=== PATIENT | female | born 1945 | race Caucasian/White ===

== ENCOUNTER 2018-05-08 00:08 | Inpatient (IN) | payer MEDICARE ==
[2018-05-08] MEDS ORDERED: Albuterol/Ipratropium NEB.SOL* Albuterol 2.5 MG/Ipratropium 0.5 MG 3 ML INH ONE (00:19)
[2018-05-08] MEDS ORDERED: Albuterol 2.5 MG/3 ML NEB.SOL* (0.083%) INH ONE (00:19)
[2018-05-08] MEDS ORDERED: NS 0.9% 1000 ML* 1,000 ML IV ONE ×2 (00:25→02:07)
[2018-05-08] MEDS ORDERED: Piperacillin/Tazobac ADVAN(*) 3.375 GM in NS 0.9% 100 ML* 100 ML IVPB ONE (00:25)
[2018-05-08] MEDS ORDERED: methylPREDNISolone 125 MG* 2 ML VIAL IV ONE (00:26)
[2018-05-08] MEDS ORDERED: Clindamycin 600 MG IVPREMIX(* 600 MG/50 ML SDV IV ONE (00:53)
[2018-05-08 01:44] LABS: INR 4.81 (0.77-1.02)
[2018-05-08 01:49] LABS: Urine Appearance Turbid; Urine Blood 2+ (Negative); Urine Color Amber; Urine Ketones Negative (Negative); Urine Protein 1+(30 mg/dL) (Negative); Urine Red Blood Cell 3+(>10/hpf) (Absent); Urine Specific Gravity 1.015 (1.010-1.030); Urine Urobilinogen Negative (Negative); Urine White Blood Cell 2+(11-20/hpf) (Absent)
[2018-05-08 01:52] LABS: Hematocrit 31 % (35-47); Hemoglobin 10.6 g/dl (12.0-16.0); Mean Corpuscular HGB Conc 35 g/dl (31-36); Mean Corpuscular Hemoglobin 31 pg (27-31); Mean Corpuscular Volume 90 fL (80-97); Mean Platelet Volume 7.4 fL (7.4-10.4); Platelet Count 183 10^3/ul (150-450); Red Blood Count 3.41 10^6/ul (4.00-5.40); Red Cell Distribution Width 15 % (10.5-15); White Blood Count 10.7 10^3/ul (3.5-10.8)
[2018-05-08 01:53] LABS: EGFR Non-African American 23.3 (>60)
[2018-05-08] MEDS ORDERED: NS 0.9% 1000 ML* 1,000 ML IV SCH ×2 (02:00→03:00)
[2018-05-08] MEDS ORDERED: Phytonadione IV (Adult)* 10 MG/ML 1 ML AMP IV ONE (02:08)
--- NOTE | 2018-05-08 02:14 | ADMNOTE ---
Subjective Date of Service: 05/08/18 Interval History: code status dni/dnr signed by pt and she is aao times three witnessed by two other er nursing staff this is admission h/ to icu total critical care time spent 90 min hpi this is a 72 yr old wf with hx of copd ( not on home oxygen ) pvd s/p b/l fempep and had aaa repair currently on coumadin due to concurrent r carotid dvt presented to local er with unknown days of sob/couging with greenish sputum not feeling well. she was found in acute hypoxia respiratory failure and hypotension and tachycardic on admission from er signout. initial abg 7.4//235 /18 on high oxygen repeat abg after oxygen reduction was 7.33///16 ct of chest with no contrast showed multi lobar pna. initial wbc and lactic acid is neg pt was on bipap for her respiratory problem but was found to have hypotension despite ivf echo ordered for am. spoke with icu dr production bow maker will start low dose of pressor and call family to her for treatment goal discussion. d/w pt reg her overall prognosis she wants dni/dnr and is aao times three when this decision is made one dose of vit k 2.5 ivp given due to inr is close to 5 phx/pshx copd on no home oxgyen pvd f/u with vascular from [facility] s/p b/l fempep s/p abd aortic aneurysm repair r carotid dvt on coumadin still smokes social 0.5 ppd occ etoh walks with a walker at times at home lives alone fhx dm/htn Review of Systems - Measurements Intake and Output: Intake and Output Last 24 Hours 05/05/18 05/06/18 05/07/18 05/08/18 06:59 06:59 06:59 06:59 Intake Total 1050 Output Total 300 Balance 750 Weight 160 lb Intake: IV Fluids 1050 Output: Residual 300 Harding 16 Fr Temperature 300 Probe - Review of Systems General Comments: pertinent as per hpi Objective Active Medications: Albuterol/Ipratropium (Duoneb (Albuterol 2.5 Mg/Ipratropium 0.5 Mg)) 1 neb INH RT.[id number] AWAKE PRN PRN Reason: sob/wheexing Sodium Chloride (Ns 0.9% 1000 Ml*) 1,000 mls @ 75 mls/hr IV PER RATE KACY Levofloxacin/Dextrose (Levaquin 500 Mg Ivpremix(*)) 500 mg in 100 mls @ 100 mls /hr IVPB Q24H KACY Sodium Chloride (Ns 0.9% 1000 Ml*) 1,000 mls @ 75 mls/hr IV PER RATE KACY Sodium Chloride (Ns 0.9% 1000 Ml*) 1,000 mls @ 1,000 mls/hr IV ONCE ONE Stop: 05/08/18 03:06 Last Admin: 05/08/18 02:11 Dose: 1,000 mls/hr Fluconazole/Sodium Chloride (Diflucan 100 Mg Ivpremix(*)) 100 mg in 50 mls @ 100 mls/hr IVPB Q24H [facility] Vital Signs - 8 hr 05/08/18 05/08/18 05/08/18 00:22 00:35 01:04 Temperature 95 F 97.3 F Pulse Rate 102 100 Respiratory 30 24 Rate Blood Pressure 75/44 (mmHg) O2 Sat by Pulse 92 98 Oximetry 05/08/18 01:06 Temperature Pulse Rate 100 Respiratory 24 Rate Blood Pressure (mmHg) O2 Sat by Pulse 98 Oximetry Oxygen Devices in Use Now: BiPAP Appearance: in mod respiratory distress Eyes: No Scleral Icterus, PERRLA Ears/Nose/Mouth/Throat: NL Teeth, Lips, Gums, Clear Oropharnyx, Mucous Membranes Moist Neck: NL Appearance and Movements; NL JVP, Trachea Midline, No Thyroid Enlargement, Masses Respiratory: Symmetrical Chest Expansion and Respiratory Effort, - - diffuse ronchi Cardiovascular: NL Sounds; No Murmurs; No JVD, RRR, - - tachycardic Abdominal: NL Sounds; No Tenderness; No Distention Extremities: - - + 1 pedal edema able to raise ue and le against gravity Skin: No Rash or Ulcers Neurological: Alert and Oriented x 3, NL Muscle Strength and Tone - sensory b/l ue and le equal , - Result Diagrams: 05/08/18 05:42 05/08/18 05:42 Microbiology and Other Data: Microbiology 05/08/18 01:20 Influenza Types A,B Antigen - Final Nasopharyngeal Specimen received for Influenza A/B Molecular testing EKG Data: ekg sinus tach no acute st t change Assess/Plan/Problems-Billing Assessment: this is a 72 yr old wf with hx of copd not on home oxygen sig pvd presented to er with acute respiratory failure complicated with hypoxia and hypotension initial ct showed multilobar pna - Patient Problems (1) Acute and chronic respiratory failure Current Visit: Yes Status: Acute Code(s): J96.20 - ACUTE AND CHR RESP FAILURE, UNSP W HYPOXIA OR HYPERCAPNIA SNOMED Code(s): 38175862 Comment: bipap support pul to eval in am ck sputum cx resp tx along with bipap as tolerated (2) Hypoxia Current Visit: Yes Status: Acute Code(s): R09.02 - HYPOXEMIA SNOMED Code(s ): 022237826 Comment: plan as above (3) Multilobar lung infiltrate Current Visit: Yes Status: Acute Code(s): R91.8 - OTHER NONSPECIFIC ABNORMAL FINDING OF LUNG FIELD SNOMED Code(s): 8080115000164 Comment: poor prognosis with her bad lung condition and still smokes pt is aao times three and agrees to dni/dnr molst signed (4) Hypotension Current Visit: Yes Status: Acute Comment: ivf low dose pressor ck random cortisal level hydrocortisone instead of solumderol (5) Severe sepsis with acute organ dysfunction Current Visit: Yes Status: Acute Code(s): A41.9 - SEPSIS, UNSPECIFIED ORGANISM; R65.20 - SEVERE SEPSIS WITHOUT SEPTIC SHOCK SNOMED Code(s): 01142202 Comment: ivf with pressors abx hydrocortisone iv q 8 bipap (6) Acute renal failure (ARF) Current Visit: Yes Status: Acute Comment: this could be atn related to hypotension secondary to infection ivf harding placed moniter input and outpt mnter lytes abd sono ordered for am (7) PVD (peripheral vascular disease) Current Visit: Yes Status: Acute Code(s): I73.9 - PERIPHERAL VASCULAR DISEASE, UNSPECIFIED SNOMED Code(s): 882922371 Comment: pt has been on coumadin for this problem ---> inr is supratheraputic close to 5 this could be much worse due to concurrent abx use iv vit k given hold coumadin (8) Supratherapeutic INR Current Visit: Yes Status: Acute Code(s): R79.1 - ABNORMAL COAGULATION PROFILE SNOMED Code(s): 682539552 Comment: hold coumadin iv vit k given h/h stable not bleeding no ffp given
--- NOTE | 2018-05-08 02:28 | ED ---
Shortness of Breath - HPI Summary HPI Summary: Pt is a 72 y/o female brought in by ambulance, transferred from [facility] for admission with a CC of SOB. She also c/o fever and low BP. Pt is in respiratory distress. Pt has a Hx of HTN. - History of Current Complaint Chief Complaint: EDGeneral Time Seen by Provider: 05/08/18 00:11 Hx Obtained From: Patient, EMS Onset/Duration: Sudden Onset - Allergy/Home Medications Allergies/Adverse Reactions: Allergies Allergy/AdvReac Type Severity Reaction Status Date / Time Penicillins Allergy Hives Verified 05/08/18 00:28 PMH/Surg Hx/FS Hx/Imm Hx Cardiovascular History: Reports: Hx Hypertension Respiratory History: Reports: Hx Chronic Obstructive Pulmonary Disease (COPD) Denies: Hx Asthma Infectious Disease History: Unable to Obtain/Confirm Infectious Disease History: Denies: Traveled Outside the [place] in Last 30 Days - Family History Known Family History: Negative: Blood Disorder - Social History Alcohol Use: None Substance Use Type: Reports: Marijuana Smoking Status (MU): Light Every Day Tobacco Smoker Review of Systems Positive: Fever Cardiovascular: Other - Positive: low BP All Other Systems Reviewed And Are Negative: Yes Physical Exam - Summary Physical Exam Summary: VITAL SIGNS: Reviewed. GENERAL: Patient is a well-developed and nourished FEMALE who is in acute respiratory distress, lethargic HEAD AND FACE: No signs of trauma. No ecchymosis, hematomas or skull depressions. No sinus tenderness. EYES: PERRLA, EOMI x 2, No injected conjunctiva, no nystagmus. EARS: Hearing grossly intact. Ear canals and tympanic membranes are within normal limits. MOUTH: Oropharynx within normal limits. NECK: Supple, trachea is midline, no adenopathy, no JVD, no carotid bruit, no c- spine tenderness, neck with full ROM. CHEST: Symmetric, no tenderness at palpation LUNGS: Respiratory distress, diffuse rhonchi over right lung. CVS: tachycardic, regular rhythm, S1 and S2 present, no murmurs or gallops appreciated. ABDOMEN: Soft, non-tender. No signs of distention. No rebound no guarding, and no masses palpated. Bowel sounds are normal. EXTREMITIES: FROM in all major joints, no edema, no cyanosis or clubbing. NEURO: Alert and oriented x 3. No acute neurological deficits. Speech is normal and follows commands. SKIN: Dry and warm Triage Information Reviewed: Yes Vital Signs On Initial Exam: Initial Vitals Temp Pulse Resp BP Pulse Ox 95 F 102 30 75/44 92 05/08/18 00:22 05/08/18 00:22 05/08/18 00:22 05/08/18 00:22 05/08/18 00:22 Vital Signs Reviewed: Yes Diagnostics - Vital Signs Vital Signs Temp Pulse Resp BP Pulse Ox 05/08/18 01:06 100 24 98 05/08/18 01:04 100 24 98 05/08/18 00:35 97.3 F 05/08/18 00:22 95 F 102 30 75/44 92 - Laboratory Lab Results: Lab Results 05/08/18 05/08/18 05/08/18 Range/Units 00:55 01:20 01:20 WBC 10.7 (3.5-10.8) 10^3/ul RBC 3.41 L (4.00-5.40) 10^6/ul Hgb 10.6 L (12.0-16.0) g/dl Hct 31 L (35-47) % MCV 90 (80-97) fL MCH 31 (27-31) pg MCHC 35 (31-36) g/dl RDW 15 (10.5-15) % Plt Count 183 (150-450) 10^3/ul MPV 7.4 (7.4-10.4) fL Neut % (Auto) Not Reportable Lymph % (Auto) Not Reportable [place] % (Auto) Not Reportable Eos % (Auto) Not Reportable Baso % (Auto) Not Reportable Absolute Neuts (auto) Not Reportable Absolute Lymphs (auto) Not Reportable Absolute Monos (auto) Not Reportable Absolute Eos (auto) Not Reportable Absolute Basos (auto) Not Reportable Absolute Nucleated RBC Not Reportable Immature Gran % 7 (0-9) % Neutrophils % 83 (38-83) % Band Neutrophils % 7 (0-8) % Lymphocytes % 10 L (25-47) % Nucleated RBC % Not Reportable Normal RBC Morphology Normal (Normal) INR (Anticoag Therapy) (0.77-1.02) APTT (26.0-36.3) seconds ABG pH (7.35-7.45) ABG pCO2 (35-45) mmHg ABG pO2 (80-100) mmHg ABG HCO3 (19-31) mmol/L ABG O2 Saturation (95-98) % ABG Base Excess (-2.0-2.0) Sodium 127 L (135-145) mmol/L Potassium 3.6 (3.5-5.0) mmol/L Chloride 101 (101-111) mmol/L Carbon Dioxide 16 L (22-32) mmol/L Anion Gap 10 (2-11) mmol/L BUN 41 H (6-24) mg/dL Creatinine 2.08 H (0.51-0.95) mg/dL Est GFR ( Amer) 28.2 (>60) Est GFR (Non-Af Amer) 23.3 (>60) BUN/Creatinine Ratio 19.7 (8-20) Glucose 70 (70-100) mg/dL Lactic Acid (0.5-2.0) mmol/L Calcium 7.4 L (8.6-10.3) mg/dL Total Bilirubin 0.40 (0.2-1.0) mg/dL AST 24 (13-39) U/L ALT 18 (7-52) U/L Alkaline Phosphatase 56 (34-104) U/L Troponin I 0.08 H* (<0.04) ng/mL B-Natriuretic Peptide (<=100) pg/mL Total Protein 5.4 L (6.4-8.9) g/dL Albumin 2.5 L (3.2-5.2) g/dL Globulin 2.9 (2-4) g/dL Albumin/Globulin Ratio 0.9 L (1-3) Urine Color Chloe Urine Appearance Turbid Urine pH 5.0 (5-9) Ur Specific [place] 1.015 (1.010-1.030) Urine Protein 1+(30 mg/dl) A (Negative) Urine Ketones Negative (Negative) Urine Blood 2+ A (Negative) Urine Nitrate Negative (Negative) Urine Bilirubin Negative (Negative) Urine Urobilinogen Negative (Negative) Ur Leukocyte Esterase Negative (Negative) Urine WBC (Auto) 2+(11-20/hpf) A (Absent) Urine RBC (Auto) 3+(>10/hpf) A (Absent) Urine Bacteria Absent (Absent) Hyaline Casts Present A (Absent) Granular Casts Present A (Absent) Urine Yeast Present A (Absent) Urine Glucose Negative (Negative) Influenza A (Rapid) (Negative) Influenza B (Rapid) (Negative) 05/08/18 05/08/18 05/08/18 Range/Units 01:20 01:20 01:20 WBC (3.5-10.8) 10^3/ul RBC (4.00-5.40) 10^6/ul Hgb (12.0-16.0) g/dl Hct (35-47) % MCV (80-97) fL MCH (27-31) pg MCHC (31-36) g/dl RDW (10.5-15) % Plt Count (150-450) 10^3/ul MPV (7.4-10.4) fL Neut % (Auto) Lymph % (Auto) [place] % (Auto) Eos % (Auto) Baso % (Auto) Absolute Neuts (auto) Absolute Lymphs (auto) Absolute Monos (auto) Absolute Eos (auto) Absolute Basos (auto) Absolute Nucleated RBC Immature Gran % (0-9) % Neutrophils % (38-83) % Band Neutrophils % (0-8) % Lymphocytes % (25-47) % Nucleated RBC % Normal RBC Morphology (Normal) INR (Anticoag Therapy) 4.81 H (0.77-1.02) APTT 63.6 H (26.0-36.3) seconds ABG pH (7.35-7.45) ABG pCO2 (35-45) mmHg ABG pO2 (80-100) mmHg ABG HCO3 (19-31) mmol/L ABG O2 Saturation (95-98) % ABG Base Excess (-2.0-2.0) Sodium (135-145) mmol/L Potassium (3.5-5.0) mmol/L Chloride (101-111) mmol/L Carbon Dioxide (22-32) mmol/L Anion Gap (2-11) mmol/L BUN (6-24) mg/dL Creatinine (0.51-0.95) mg/dL Est GFR ( Amer) (>60) Est GFR (Non-Af Amer) (>60) BUN/Creatinine Ratio (8-20) Glucose (70-100) mg/dL Lactic Acid 1.4 (0.5-2.0) mmol/L Calcium (8.6-10.3) mg/dL Total Bilirubin (0.2-1.0) mg/dL AST (13-39) U/L ALT (7-52) U/L Alkaline Phosphatase (34-104) U/L Troponin I (<0.04) ng/mL B-Natriuretic Peptide 195 H (<=100) pg/mL Total Protein (6.4-8.9) g/dL Albumin (3.2-5.2) g/dL Globulin (2-4) g/dL Albumin/Globulin Ratio (1-3) Urine Color Urine Appearance Urine pH (5-9) Ur Specific [place] (1.010-1.030) Urine Protein (Negative) Urine Ketones (Negative) Urine Blood (Negative) Urine Nitrate (Negative) Urine Bilirubin (Negative) Urine Urobilinogen (Negative) Ur Leukocyte Esterase (Negative) Urine WBC (Auto) (Absent) Urine RBC (Auto) (Absent) Urine Bacteria (Absent) Hyaline Casts (Absent) Granular Casts (Absent) Urine Yeast (Absent) Urine Glucose (Negative) Influenza A (Rapid) (Negative) Influenza B (Rapid) (Negative) 05/08/18 05/08/18 Range/Units 01:30 01:46 WBC (3.5-10.8) 10^3/ul RBC (4.00-5.40) 10^6/ul Hgb (12.0-16.0) g/dl Hct (35-47) % MCV (80-97) fL MCH (27-31) pg MCHC (31-36) g/dl RDW (10.5-15) % Plt Count (150-450) 10^3/ul MPV (7.4-10.4) fL Neut % (Auto) Lymph % (Auto) [place] % (Auto) Eos % (Auto) Baso % (Auto) Absolute Neuts (auto) Absolute Lymphs (auto) Absolute Monos (auto) Absolute Eos (auto) Absolute Basos (auto) Absolute Nucleated RBC Immature Gran % (0-9) % Neutrophils % (38-83) % Band Neutrophils % (0-8) % Lymphocytes % (25-47) % Nucleated RBC % Normal RBC Morphology (Normal) INR (Anticoag Therapy) (0.77-1.02) APTT (26.0-36.3) seconds ABG pH 7.40 (7.35-7.45) ABG pCO2 23 L (35-45) mmHg ABG pO2 235 H (80-100) mmHg ABG HCO3 17.9 L (19-31) mmol/L ABG O2 Saturation 99.2 H (95-98) % ABG Base Excess -9.0 L (-2.0-2.0) Sodium (135-145) mmol/L Potassium (3.5-5.0) mmol/L Chloride (101-111) mmol/L Carbon Dioxide (22-32) mmol/L Anion Gap (2-11) mmol/L BUN (6-24) mg/dL Creatinine (0.51-0.95) mg/dL Est GFR ( Amer) (>60) Est GFR (Non-Af Amer) (>60) BUN/Creatinine Ratio (8-20) Glucose (70-100) mg/dL Lactic Acid (0.5-2.0) mmol/L Calcium (8.6-10.3) mg/dL Total Bilirubin (0.2-1.0) mg/dL AST (13-39) U/L ALT (7-52) U/L Alkaline Phosphatase (34-104) U/L Troponin I (<0.04) ng/mL B-Natriuretic Peptide (<=100) pg/mL Total Protein (6.4-8.9) g/dL Albumin (3.2-5.2) g/dL Globulin (2-4) g/dL Albumin/Globulin Ratio (1-3) Urine Color Urine Appearance Urine pH (5-9) Ur Specific [place] (1.010-1.030) Urine Protein (Negative) Urine Ketones (Negative) Urine Blood (Negative) Urine Nitrate (Negative) Urine Bilirubin (Negative) Urine Urobilinogen (Negative) Ur Leukocyte Esterase (Negative) Urine WBC (Auto) (Absent) Urine RBC (Auto) (Absent) Urine Bacteria (Absent) Hyaline Casts (Absent) Granular Casts (Absent) Urine Yeast (Absent) Urine Glucose (Negative) Influenza A (Rapid) Negative (Negative) Influenza B (Rapid) Negative (Negative) Result Diagrams: 05/08/18 01:20 05/08/18 01:20 Lab Statement: Any lab studies that have been ordered have been reviewed, and results considered in the medical decision making process. - Radiology CXR Radiology Interpretation Completed By: ED Physician - Diffuse right lung infiltrate. Post obstructive PNA cannot be ruled out. Pending official report. - CT Chest CT Interpretation Completed By: Radiologist - 1. There is mediastinal lymphadenopathy. 2. There is consolidation involving most of the right upper lobe with some minimal air bronchograms present and there is additional bilateral lower lobe dependent consolidation as well as bilateral lung patchy opacity in the perihilar regions, all suspicious for bilateral pneumonitis versus less likely pulmonary edema. Mass lesion in the right hilum cannot be completely excluded but limited evaluation without IV contrast. ED physician has reviewed this imaging report. - EKG 01:02 Cardiac Rate: NL - 97 bpm EKG Rhythm: Sinus Rhythm Summary of EKG Findings: Normal axis. Normal interval. No ischemic changes. Course/Dx - Course Course Of Treatment: Pt is a 72 y/o female brought in by ambulance, transferred from [facility] for admission with a CC of SOB. Her PE showed that the pt was in respiratory distress, lethargic, tachycardic and diffuse rhonchi over the right lung. Her CXR showed diffuse right lung infiltrate. Post obstructive PNA cannot be ruled out. Her troponin was remarkable at 0.08. Her Chest CT showed. 1. There is mediastinal lymphadenopathy. 2. There is consolidation involving most of the right upper lobe with some. minimal air bronchograms present and there is additional bilateral lower lobe. dependent consolidation as well as bilateral lung patchy opacity in the. perihilar regions, all suspicious for bilateral pneumonitis versus less likely. pulmonary edema. Mass lesion in the right hilum cannot be completely excluded. but limited evaluation without IV contrast. She will be admitted to [facility]. Dx: PNA. - Diagnoses Provider Diagnoses: PNA (pneumonia) - Physician Notifications Discussed Care of Patient With: Taylor Erazo Time Discussed With Above Provider: 00:50 Instructed by Provider To: Admit As Inpatient - [facility] was paged at 00:45. At 00:50 she stated that she will not accept the Pt for admission until she has a chest CT. A chest CT was obtained and pt is ready for admission. Discharge - Sign-Out/Discharge Documenting (check all that apply): Patient Departure - Admit - Discharge Plan Condition: Fair Disposition: ADMITTED TO [facility] - Attestation Statements Document Initiated by Scribe: Yes Documenting Scribe: Brock Valentine Provider For Whom Scribe is Documenting (Include Credential): Alfonso Rueda MD Scribe Attestation: I, Brock Valentine, scribed for Alfonso Rueda MD on 05/08/18 at 0359.
[2018-05-08] MEDS ORDERED: Fluconazole 100 MG IVPREMIX(*) 100 MG/50 ML BAG IVPB SCH (03:00)
[2018-05-08] MEDS ORDERED: Pantoprazole IV* 40 MG IV SCH (03:00)
[2018-05-08] MEDS ORDERED: Levofloxacin 500 MG IVPREMIX(* 500 MG/100 ML BAG IVPB SCH (03:00)
[2018-05-08] MEDS ORDERED: NS 0.9% 500 ML* 500 ML IV ONE (05:30)
[2018-05-08] MEDS ORDERED: methylPREDNISolone SOD 40 MG* 1 ML VIAL IM SCH (06:00)
[2018-05-08 06:16] LABS: ABS Basophils 0 10^3/ul (0-0.2); ABS Eosinophils 0.2 10^3/ul (0-0.6); ABS Lymphocytes 0.4 10^3/ul (1.0-4.8); ABS Monocytes 0.1 10^3/ul (0-0.8); ABS Neutrophils 10.8 10^3/ul (1.5-7.7); ABS Nucleated RBC 0 10^3/ul; Eosinophil % 1.7 % (0-6); Hematocrit 30 % (35-47); Hemoglobin 9.9 g/dl (12.0-16.0); Lymphocyte % 3.2 % (25-47); Mean Corpuscular HGB Conc 33 g/dl (31-36); Mean Corpuscular Hemoglobin 30 pg (27-31); Mean Corpuscular Volume 92 fL (80-97); Mean Platelet Volume 7.3 fL (7.4-10.4); Nucleated Red Blood Cells % 0; Platelet Count 172 10^3/ul (150-450); Red Blood Count 3.26 10^6/ul (4.00-5.40); Red Cell Distribution Width 15 % (10.5-15); White Blood Count 11.5 10^3/ul (3.5-10.8)
[2018-05-08 06:23] LABS: Urine Appearance Cloudy; Urine Blood 2+ (Negative); Urine Color Yellow; Urine Ketones Negative (Negative); Urine Protein Negative (Negative); Urine Red Blood Cell Trace(0-2/hpf) (Absent); Urine Specific Gravity 1.005 (1.010-1.030); Urine Urobilinogen Negative (Negative); Urine White Blood Cell Absent (Absent)
[2018-05-08] MEDS: Hydrocortisone INJ* 100 MG VIAL IV SCH ×3 (06:23→21:32)
[2018-05-08] MEDS ORDERED: NS 0.9% 500 ML* @ Wide Open(Bolus) 500ml IV ONE (06:30)
[2018-05-08 06:32] LABS: EGFR Non-African American 26.6 (>60)
[2018-05-08 06:51] LABS: INR 5.9 (0.77-1.02)
[2018-05-08] MEDS ORDERED: Phenylephrine INJ* 10 MG/ML 1 ML VIAL (10 MG) ONE (07:03)
[2018-05-08] MEDS ORDERED: Phenylephrine INJ* 50 MG in NS 0.9% 250 ML* 245 ML IV SCH (08:00)
--- NOTE | 2018-05-08 08:52 | ECHO ---
Patient: TAYLOR GLOVER [facility] Rec#: [id number] : 1945 Date: 05/08/2018 Age: 72y Height: 155 cm / 61.0 in Weight: 72.58 kg / 160.0 lbs Sex: F BSA: 1.72 Room#: [facility] Admit Date#: 05/08/2018 Type: Inpatient Referring: Negar Erazoe Reading: Rene Kowalski MD [employer]er: Jerilyn Adhikari RDCS CC: Emilia Kowalski MD Transthoracic Echocardiogram Indication: Shortness of breath BP: 92/54 HR: 98 Rhythm: NSR with PACs Findings History: HTN, CVA, COPD. Technical Comments: The study quality is fair. Completed at 0815. Left Ventricle: The left ventricular chamber size is decreased. Global left ventricular wall motion and contractility are within normal limits. There is normal left ventricular systolic function. The estimated ejection fraction is 55-60%. The assessment of diastolic function is non-diagnostic. Left Atrium: The left atrium is moderately dilated. Right Ventricle: Moderator Band present. The right ventricle is mildly dilated. The right ventricular global systolic function is moderately reduced. Right Atrium: The right atrial cavity size is normal. Aortic Valve: The aortic valve structure is not well visualized. The aortic valve leaflets are mildly thickened. There is no evidence of aortic regurgitation. There is no evidence of aortic stenosis. Mitral Valve: The mitral valve leaflets are mildly thickened. There is mild to moderate mitral regurgitation. Tricuspid Valve: The tricuspid valve leaflets are normal. There is mild to moderate tricuspid regurgitation. The right ventricular systolic pressure is estimated at 47 mmHg. There is evidence of moderate pulmonary hypertension. Pulmonic Valve: The pulmonic valve appears normal. There is no evidence of pulmonic regurgitation. There is no pulmonic stenosis. Pericardium: There is no significant pericardial effusion. A pericardial fat pad is visualized. Aorta: There is no dilatation of the ascending aorta. There is no dilatation of the aortic arch. The aortic root is normal in size. Pulmonary Artery: The main pulmonary artery is not well visualized. Venous: The inferior vena cava appears normal in size. There is less than 50% respiratory change in the inferior vena cava dimension. Conclusions There is normal left ventricular systolic function. The estimated ejection fraction is 55-60%. Global left ventricular wall motion and contractility are within normal limits. The left ventricular chamber size is decreased. The left atrium is moderately dilated. The right ventricle is mildly dilated. The right ventricular global systolic function is moderately reduced. There is mild to moderate tricuspid regurgitation. There is evidence of moderate pulmonary hypertension. There is no prior echocardiogram available to compare with at this time. Measurements Name Value Normal Range RVIDd (AP) 2D 2.7 cm (0.9 - 2.6) RVDdMajor (2D) 4.6 cm (2.2 - 4.4) RAd ISD 4CH 4.5 cm (3.4 - 4.9) RA (A4C)W 3.7 cm (2.9 - 4.6) IVSd (2D) 1 cm (0.6 - 1) LVPWd (2D) 0.8 cm (0.6 - 1) LVIDd (2D) 3.5 cm (3.6 - 5.4) LVIDs (2D) 2.7 cm - LV FS (2D) 23 % (25 - 45) Aortic Annulus 2 cm (1.4 - 2.6) Ao root diameter (2D) 2.9 cm (2.1 - 3.5) Ascending Ao 2.9 cm (2.1 - 3.4) Aortic arch 2 cm (1.8 - 3.4) LA dimension (AP) 2D 3.6 cm (2.3 - 3.8) LAd ISD 4CH 5.5 cm (2.9 - 5.3) LA ISD 4CH W 5.3 cm (2.5 - 4.5) Name Value Normal Range LA ESV BP (A/L) index 48 ml/m2 - Name Value Normal Range MV E-wave Vmax 1 m/sec - MV deceleration time 137 msec - MV A-wave Vmax 0.9 m/sec - MV E:A ratio 1.1 ratio - LV septal e' Vmax 0.05 m/sec - LV lateral e' Vmax 0.07 m/sec - LV E:e' septal ratio 20 ratio - LV E:e' lateral ratio 14.3 ratio - Name Value Normal Range AV Vmax 1.1 m/sec - AV VTI 22 cm - AV peak gradient 5 mmHg - AV mean gradient 3 mmHg - LVOT Vmax 0.9 m/sec - LVOT VTI 15.2 cm - LVOT peak gradient 3 mmHg - LVOT mean gradient 1 mmHg - NINA Vmax 0.5 m/sec - Name Value Normal Range TR Vmax 3.1 m/sec - TR peak gradient 38 mmHg - RAP 8 mmHg - RVSP 47 mmHg - IVC diameter 2 cm - Name Value Normal Range PV Vmax 0.9 m/sec - PV peak gradient 3 mmHg -
[2018-05-08] MEDS ORDERED: Vancomycin(*) 1,250 MG in NS 0.9% 250 ML* 250 ML IVPB ONE (10:00)
[2018-05-08] MEDS ORDERED: Vancomycin per Pharmacy* NOTE FOLLOW UP SCH (10:00)
--- NOTE | 2018-05-08 10:39 | CONSULT ---
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 She states increasing shortness of breath x1 week, mild cough+ for ~1 week, no sputum. No fever. Chills+ occasionally. Generalized pains+. Pleuritic chest pain on coughing+. No n/v. Chronic abdominal pain. Unclear of course at [facility]. [place] [facility] [place] tachycardic/ tachypneic, sats 90s, hypotensive 70s. CXR demonstrated Right sided multilobar pneumonia, started on sepsis protocol/IV abx. CT CHes with dense consolidation on RUL and small on bilateral lower lobes. She was started on fish this morning for hypotension. Currently awake, alert, on NIV, tachypnea, on fish 40, mild tachycardia+. Able to give history but some resp distress hinders. ROS: negative except for pertinent positives mentioned above. 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 Allergies: Allergies Allergy/AdvReac Type Severity Reaction Status Date / Time Penicillins Allergy Hives Verified 05/08/18 00:28 Home Medications: - Tele: Sinus tachycardia Vitals: Vital Signs Temp 99.5 F 05/08/18 10:15 Pulse 108 05/08/18 10:15 Resp 23 05/08/18 10:15 BP 118/67 05/08/18 10:15 Pulse Ox 99 05/08/18 10:15 Intake & Output 05/07/18 05/08/18 05/08/18 18:59 06:59 18:59 Intake Total 3193 Output Total 800 425 Balance 2393 -425 Weight 74.7 kg Intake: IV Fluids 3051 ABX - LEVOFLOXACIN 100 NS (0.9%) 901 IVPB 142 NS (0.9%) 142 Output: Bone 500 425 Residual 300 Bone 16 Fr Temperature 300 Probe O2/Vent: NIV 12/6 45%; rr mid 20s, TV 400s Infusions: NS 75, Neosynephrine 40 Current Medications: Albuterol/Ipratropium (Duoneb (Albuterol 2.5 Mg/Ipratropium 0.5 Mg)) 1 neb INH [id number] AWAKE PRN PRN Reason: sob/wheexing Hydrocortisone Sodium Succinate (Solu-Cortef*) 100 mg IV Q8H REPLACED BY [facility] Last Admin: 05/08/18 06:23 Dose: 100 mg Sodium Chloride (Ns 0.9% 1000 Ml*) 1,000 mls @ 75 mls/hr IV PER RATE REPLACED BY [facility] Last Admin: 05/08/18 03:56 Dose: 75 mls/hr Phenylephrine HCl 50 mg/ (Sodium Chloride) 250 mls @ 0 mls/hr IV .TITRATE TO MAP>60 REPLACED BY [facility]; Protocol Last Admin: 05/08/18 07:51 Dose: 12 mls/hr Vancomycin HCl 1,250 mg/ (Sodium Chloride) 250 mls @ 166.667 mls/hr IVPB ONCE ONE Stop: 05/08/18 11:29 Last Admin: 05/08/18 10:30 Dose: 166.667 mls/hr Azithromycin 500 mg/ Sodium (Chloride) 250 mls @ 250 mls/hr IVPB Q24H [facility] Aztreonam 1 gm/ Sodium (Chloride) 50 mls @ 200 mls/hr IVPB Q12H REPLACED BY [facility] Pantoprazole Sodium (Protonix Iv*) 40 mg IV Q12H REPLACED BY [facility] Last Admin: 05/08/18 04:05 Dose: 40 mg Pharmacy Consult (Vancomycin Per Pharmacy*) 1 note FOLLOW UP .VANC PER PHARMACY REPLACED BY [facility] Physical Exam: General: awake, alert, tachypnea+, no diaphoresis Head: normocephalic, atraumatic HEENT: no pallor, no icterus, moist mucous membranes Neck: soft, supple, no jvd, no stridor CVS: tachycardic, regular, no murmur Resp: bilateral air entry, diffuse right sided rhales throughout with some rhonchi, mild left lower rhales only, no wheeze, no acc muscle use Abdomen: soft, Right upper quad tenderness on palpation, nondistended, bowel sounds present Ext: pulses+, warm, no edema Skin: intact Neuro: awake, alert, orientedx3, moving all extremities, no gross focal deficit Labs: Laboratory Results - last 24 hr 05/08/18 05/08/18 05/08/18 00:55 01:20 01:20 WBC 10.7 RBC 3.41 L Hgb 10.6 L Hct 31 L MCV 90 MCH 31 MCHC 35 RDW 15 Plt Count 183 MPV 7.4 Neut % (Auto) Not Reportable Lymph % (Auto) Not Reportable Esmeralda % (Auto) Not Reportable Eos % (Auto) Not Reportable Baso % (Auto) Not Reportable Absolute Neuts (auto) Not Reportable Absolute Lymphs (auto) Not Reportable Absolute Monos (auto) Not Reportable Absolute Eos (auto) Not Reportable Absolute Basos (auto) Not Reportable Absolute Nucleated RBC Not Reportable Immature Gran % 7 Neutrophils % 83 Band Neutrophils % 7 Lymphocytes % 10 L Nucleated RBC % Not Reportable Normal RBC Morphology Normal INR (Anticoag Therapy) APTT ABG pH ABG pCO2 ABG pO2 ABG HCO3 ABG O2 Saturation ABG Base Excess Sodium 127 L Potassium 3.6 Chloride 101 Carbon Dioxide 16 L Anion Gap 10 BUN 41 H Creatinine 2.08 H Est GFR ( Amer) 28.2 Est GFR (Non-Af Amer) 23.3 BUN/Creatinine Ratio 19.7 Glucose 70 Lactic Acid Calcium 7.4 L Total Bilirubin 0.40 AST 24 ALT 18 Alkaline Phosphatase 56 Troponin I 0.08 H* B-Natriuretic Peptide Total Protein 5.4 L Albumin 2.5 L Globulin 2.9 Albumin/Globulin Ratio 0.9 L Cortisol Urine Color Chloe Urine Appearance Turbid Urine pH 5.0 Ur Specific [place] 1.015 Urine Protein 1+(30 mg/dl) A Urine Ketones Negative Urine Blood 2+ A Urine Nitrate Negative Urine Bilirubin Negative Urine Urobilinogen Negative Ur Leukocyte Esterase Negative Urine WBC (Auto) 2+(11-20/hpf) A Urine RBC (Auto) 3+(>10/hpf) A Ur Squamous Epith Cells Urine Bacteria Absent Hyaline Casts Present A Granular Casts Present A Urine Yeast Present A Urine Glucose Negative Influenza A (Rapid) Influenza B (Rapid) Blood Type Antibody Screen 05/08/18 05/08/18 05/08/18 01:20 01:20 01:20 WBC RBC Hgb Hct MCV MCH MCHC RDW Plt Count MPV Neut % (Auto) Lymph % (Auto) Esmeralda % (Auto) Eos % (Auto) Baso % (Auto) Absolute Neuts (auto) Absolute Lymphs (auto) Absolute Monos (auto) Absolute Eos (auto) Absolute Basos (auto) Absolute Nucleated RBC Immature Gran % Neutrophils % Band Neutrophils % Lymphocytes % Nucleated RBC % Normal RBC Morphology INR (Anticoag Therapy) 4.81 H APTT 63.6 H ABG pH ABG pCO2 ABG pO2 ABG HCO3 ABG O2 Saturation ABG Base Excess Sodium Potassium Chloride Carbon Dioxide Anion Gap BUN Creatinine Est GFR ( Amer) Est GFR (Non-Af Amer) BUN/Creatinine Ratio Glucose Lactic Acid 1.4 Calcium Total Bilirubin AST ALT Alkaline Phosphatase Troponin I B-Natriuretic Peptide 195 H Total Protein Albumin Globulin Albumin/Globulin Ratio Cortisol Urine Color Urine Appearance Urine pH Ur Specific [place] Urine Protein Urine Ketones Urine Blood Urine Nitrate Urine Bilirubin Urine Urobilinogen Ur Leukocyte Esterase Urine WBC (Auto) Urine RBC (Auto) Ur Squamous Epith Cells Urine Bacteria Hyaline Casts Granular Casts Urine Yeast Urine Glucose Influenza A (Rapid) Influenza B (Rapid) Blood Type Antibody Screen 05/08/18 05/08/18 05/08/18 01:30 01:46 05:41 WBC RBC Hgb Hct MCV MCH MCHC RDW Plt Count MPV Neut % (Auto) Lymph % (Auto) Esmeralda % (Auto) Eos % (Auto) Baso % (Auto) Absolute Neuts (auto) Absolute Lymphs (auto) Absolute Monos (auto) Absolute Eos (auto) Absolute Basos (auto) Absolute Nucleated RBC Immature Gran % Neutrophils % Band Neutrophils % Lymphocytes % Nucleated RBC % Normal RBC Morphology INR (Anticoag Therapy) APTT ABG pH 7.40 7.33 L ABG pCO2 23 L 25 L ABG pO2 235 H 70 L ABG HCO3 17.9 L 16.1 L ABG O2 Saturation 99.2 H 95.7 ABG Base Excess -9.0 L -11.3 L Sodium Potassium Chloride Carbon Dioxide Anion Gap BUN Creatinine Est GFR ( Amer) Est GFR (Non-Af Amer) BUN/Creatinine Ratio Glucose Lactic Acid Calcium Total Bilirubin AST ALT Alkaline Phosphatase Troponin I B-Natriuretic Peptide Total Protein Albumin Globulin Albumin/Globulin Ratio Cortisol Urine Color Urine Appearance Urine pH Ur Specific [place] Urine Protein Urine Ketones Urine Blood Urine Nitrate Urine Bilirubin Urine Urobilinogen Ur Leukocyte Esterase Urine WBC (Auto) Urine RBC (Auto) Ur Squamous Epith Cells Urine Bacteria Hyaline Casts Granular Casts Urine Yeast Urine Glucose Influenza A (Rapid) Negative Influenza B (Rapid) Negative Blood Type Antibody Screen 05/08/18 05/08/18 05/08/18 05:42 05:42 05:42 WBC RBC Hgb Hct MCV MCH MCHC RDW Plt Count MPV Neut % (Auto) Lymph % (Auto) Esmeralda % (Auto) Eos % (Auto) Baso % (Auto) Absolute Neuts (auto) Absolute Lymphs (auto) Absolute Monos (auto) Absolute Eos (auto) Absolute Basos (auto) Absolute Nucleated RBC Immature Gran % Neutrophils % Band Neutrophils % Lymphocytes % Nucleated RBC % Normal RBC Morphology INR (Anticoag Therapy) APTT ABG pH ABG pCO2 ABG pO2 ABG HCO3 ABG O2 Saturation ABG Base Excess Sodium 130 L Potassium 4.1 Chloride 104 Carbon Dioxide 15 L Anion Gap 11 BUN 40 H Creatinine 1.86 H Est GFR ( Amer) 32.1 Est GFR (Non-Af Amer) 26.6 BUN/Creatinine Ratio 21.5 H Glucose 130 H Lactic Acid Calcium 7.0 L Total Bilirubin AST ALT Alkaline Phosphatase Troponin I 0.04 H* B-Natriuretic Peptide 225 H Total Protein Albumin Globulin Albumin/Globulin Ratio Cortisol 46.34 Urine Color Yellow Urine Appearance Cloudy Urine pH 5.0 Ur Specific [place] 1.005 L Urine Protein Negative Urine Ketones Negative Urine Blood 2+ A Urine Nitrate Negative Urine Bilirubin Negative Urine Urobilinogen Negative Ur Leukocyte Esterase Negative Urine WBC (Auto) Absent Urine RBC (Auto) Trace(0-2/hpf) Ur Squamous Epith Cells Present A Urine Bacteria 1+ A Hyaline Casts Granular Casts Present A Urine Yeast Urine Glucose Negative Influenza A (Rapid) Influenza B (Rapid) Blood Type Antibody Screen 05/08/18 05/08/18 05/08/18 05:42 05:42 05:42 WBC 11.5 H RBC 3.26 L Hgb 9.9 L Hct 30 L MCV 92 MCH 30 MCHC 33 RDW 15 Plt Count 172 MPV 7.3 L Neut % (Auto) 94.1 H Lymph % (Auto) 3.2 L Esmeralda % (Auto) 0.9 Eos % (Auto) 1.7 Baso % (Auto) 0.1 Absolute Neuts (auto) 10.8 H Absolute Lymphs (auto) 0.4 L Absolute Monos (auto) 0.1 Absolute Eos (auto) 0.2 Absolute Basos (auto) 0 Absolute Nucleated RBC 0 Immature Gran % Neutrophils % Band Neutrophils % Lymphocytes % Nucleated RBC % 0 Normal RBC Morphology INR (Anticoag Therapy) 5.90 H* APTT ABG pH ABG pCO2 ABG pO2 ABG HCO3 ABG O2 Saturation ABG Base Excess Sodium Potassium Chloride Carbon Dioxide Anion Gap BUN Creatinine Est GFR ( Amer) Est GFR (Non-Af Amer) BUN/Creatinine Ratio Glucose Lactic Acid 2.0 Calcium Total Bilirubin AST ALT Alkaline Phosphatase Troponin I B-Natriuretic Peptide Total Protein Albumin Globulin Albumin/Globulin Ratio Cortisol Urine Color Urine Appearance Urine pH Ur Specific [place] Urine Protein Urine Ketones Urine Blood Urine Nitrate Urine Bilirubin Urine Urobilinogen Ur Leukocyte Esterase Urine WBC (Auto) Urine RBC (Auto) Ur Squamous Epith Cells Urine Bacteria Hyaline Casts Granular Casts Urine Yeast Urine Glucose Influenza A (Rapid) Influenza B (Rapid) Blood Type Antibody Screen 05/08/18 05:42 WBC RBC Hgb Hct MCV MCH MCHC RDW Plt Count MPV Neut % (Auto) Lymph % (Auto) Esmeralda % (Auto) Eos % (Auto) Baso % (Auto) Absolute Neuts (auto) Absolute Lymphs (auto) Absolute Monos (auto) Absolute Eos (auto) Absolute Basos (auto) Absolute Nucleated RBC Immature Gran % Neutrophils % Band Neutrophils % Lymphocytes % Nucleated RBC % Normal RBC Morphology INR (Anticoag Therapy) APTT ABG pH ABG pCO2 ABG pO2 ABG HCO3 ABG O2 Saturation ABG Base Excess Sodium Potassium Chloride Carbon Dioxide Anion Gap BUN Creatinine Est GFR ( Amer) Est GFR (Non-Af Amer) BUN/Creatinine Ratio Glucose Lactic Acid Calcium Total Bilirubin AST ALT Alkaline Phosphatase Troponin I B-Natriuretic Peptide Total Protein Albumin Globulin Albumin/Globulin Ratio Cortisol Urine Color Urine Appearance Urine pH Ur Specific [place] Urine Protein Urine Ketones Urine Blood Urine Nitrate Urine Bilirubin Urine Urobilinogen Ur Leukocyte Esterase Urine WBC (Auto) Urine RBC (Auto) Ur Squamous Epith Cells Urine Bacteria Hyaline Casts Granular Casts Urine Yeast Urine Glucose Influenza A (Rapid) Influenza B (Rapid) Blood Type A Positive Antibody Screen Negative Imaging: CXR 05/08 Right upper lobe consolidation/middle lobe, some left lower lobe CT chest 05/08 multilobar consolidation RUL greatest, mild perihilar, mild bilateral lower; small effusion (reviewed official report) Assessment: 72y F w/pmhx of HTN, COPD, PVD, AAA repair, 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 She states increasing shortness of breath x1 week, mild cough+ for ~1 week, no sputum. Chills+ occasionally. Generalized pains+. Pleuritic chest pain on coughing+. Chronic abdominal pain. Went to [facility], [place] [facility] [place] found to have dense RUL pneumonia, hypoxic/tachycardic/tachypneic, hypotensive, started on pressors, admitted to ICU. -Acute hypoxic respiratory failure -RUL pneumonia -Severe sepsis with shock -Metabolic Acidosis -ALYSIA -Coagulopathy 2/2 to warfarin h/o IJ DVT COPD Plan: Neuro- awake/alert, not confused. Delirium prec. Asp prec. Avoid sedating agents. CVS- shock 2/2 to sepsis; now on fish. Will transition to levophed once central line placed. Anemia, hg stable. LA negative. Making urine. Cont NS 75cc/hr. TTE reviewed 05/08 with preserved LV function, mod RV dysfunction. IV abx. INR 5.9, on warfarin but likely elevated due to sepsis/worsened coagulopathy, s/p vit k 2.5 IV x1, transfuse 2 ffp now to procedures can be performed. Hold further warfarin. No bleeding noted otherwise. PVD history unclear, obtain records from [facility]. Cont Hydrocortisone as stress steroids 100mg q8h for now. Resp- hypoxic, stable on NIV, still tachypneic though, maintain NIV today. DNR/ DNI status as per patient. Bronchodilators PRN. s/p solumedrol, now on hydrocortisone. CXR tomorrow. Sputum culture if able. ID- afebrile. Wbc 12. Blood culture sent. Send sputum culture. Send legionella/ strept ag. Rash to PCN mild according to patient, will medication with Benadryl if needed, on steroids now too. Change Levaquin given septic shock to Aztreonam 1gm q12h (day#1), azithromycin (day#1), Vancomycin (day#1) GI- NPO. PPI IV daily. GI prophylaxis. RUQ ultrasound to eval GB. abdominal pain +, pain control prn with morphine. Renal- ALYSIA, Cr 2 and decreasing now. Making urine, positive balance 2/2 to IVF bolus. Cont NS 75cc/hr. K okay. [place] metabolic acidosis, neg LA, likely from ALYSIA. Bone+. Heme- anemia, hg stable. Plt okay. Hold warfarin. INR 5.9, no bleeding. Transfuse 2 ffp now for procedure later. s/p vit k 2.5mg iv x1 given. Endo- check hba1c/tsh. Fingersticks prn. Musculsk- pressure ulcer prophylaxis. Bedrest. Wounds- none Nutrition- NPO DVT prophylaxis: SCDs GI prophylaxis: PPI Central Line: no Arterial Line: no Bone Cathetor: yes Disposition: ICU Code Status: DNR/DNI Total Critical Care time is 60 minutes, excluding procedures/teaching Moises Martinez MD [employer] (Electronically Signed)
[2018-05-08] MEDS: Morphine VIAL* 4 MG/ML VIAL (1 ml vial) IV PRN (10:57)
[2018-05-08] MEDS ORDERED: cefTRIAXone(*) 1 GM in NS 0.9% 50 ML* 50 ML IVPB SCH (11:00)
[2018-05-08] MEDS: Aztreonam (*) 1 GM in NS 0.9% 50 ML* 50 ML IVPB SCH ×2 (11:34→23:31)
[2018-05-08] MEDS: Azithromycin IV(*) 500 MG in NS 0.9% 250 ML* 250 ML IVPB SCH (11:34)
[2018-05-08] MEDS ORDERED: Acetaminophen TAB* 325 MG ONE (13:42)
[2018-05-08] MEDS: Albuterol/Ipratropium NEB.SOL* Albuterol 2.5 MG/Ipratropium 0.5 MG 3 ML INH PRN ×2 (13:45→17:56)
[2018-05-08] MEDS ORDERED: Acetaminophen ADULT LIQ* 650 MG/20.3 ML UDC PO PRN (13:47)
[2018-05-08] MEDS: Phenylephrine INJ* 50 MG in NS 0.9% 250 ML* 245 ML IV SCH (13:56)
--- NOTE | 2018-05-08 14:34 | PN ---
Progress Note - Progress Note Date of Service: 05/08/18 Note: discussion with daughter and patient; she was requesting to stop all treatment legionella urine ag+ discussed with both of them about treatement for legionella. she remains DNR/ DNI. we discussed that if she can improve and come off NIV, there is chance of improving. she does not want more aggressive measures. they will discuss, other daughter arriving to [facility] she remains on low dose fish at 40mcg/min will not place central line now. keep fish infusing peripherally. making urine. cont ivf. cont iv abx. trialed off NIV to hiflow. agree with DNR/DNI. some records obtained from [facility]. will discuss furhter tomorrow. Moises Martinez
[2018-05-08 15:35] LABS: EGFR Non-African American 30.9 (>60)
[2018-05-08] MEDS ORDERED: D5W 1000 ML BAG* 850 ML with Sodium Bicarbonate 8.4% IV* 150 MEQ IV SCH ×2 (16:00)
[2018-05-08] MEDS: Sodium Bicarbonate 8.4% IV* 150 MEQ in D5W 1000 ML BAG* 850 ML IV SCH (18:56)
[2018-05-08] MEDS: Vancomycin(*) 750 MG in NS 0.9% 250 ML* 250 ML IVPB SCH (21:32)
[2018-05-09 05:43] LABS: Hematocrit 29 % (35-47); Hemoglobin 9.7 g/dl (12.0-16.0); Mean Corpuscular HGB Conc 34 g/dl (31-36); Mean Corpuscular Hemoglobin 30 pg (27-31); Mean Corpuscular Volume 90 fL (80-97); Mean Platelet Volume 7.6 fL (7.4-10.4); Platelet Count 185 10^3/ul (150-450); Red Cell Distribution Width 15 % (10.5-15); White Blood Count 16.5 10^3/ul (3.5-10.8)
[2018-05-09] MEDS: Hydrocortisone INJ* 100 MG VIAL IV SCH (05:54)
[2018-05-09 05:59] LABS: INR 7.54 (0.77-1.02)
[2018-05-09 06:00] LABS: EGFR Non-African American 36.6 (>60)
[2018-05-09] MEDS ORDERED: Phytonadione IV (Adult)* 2.5 MG in NS 0.9% 50 ML* 50 ML IVPB ONE (06:30)
[2018-05-09] MEDS ORDERED: Phytonadione IV (Adult)* 10 MG/ML 1 ML AMP ONE (06:31)
[2018-05-09] MEDS: Phenylephrine INJ* 50 MG in NS 0.9% 250 ML* 245 ML IV SCH (08:08)
[2018-05-09] MEDS: Vancomycin(*) 750 MG in NS 0.9% 250 ML* 250 ML IVPB SCH ×2 (08:14→21:12)
[2018-05-09] MEDS ORDERED: Pantoprazole IV* 40 MG IV SCH (09:00)
[2018-05-09] MEDS ORDERED: Potassium Chlor TAB* 20 MEQ TAB.ER PO ONE (09:11)
[2018-05-09] MEDS ORDERED: Phytonadione IV (Adult)* 10 MG/ML 1 ML AMP IV ONE (09:11)
[2018-05-09] MEDS ORDERED: KCL 20 MEQ/100 ML IVPREMIX* 20 MEQ/100 ML BAG IV ONE (09:11)
[2018-05-09] MEDS ORDERED: Docusate CAP* 100 MG PO PRN (10:50)
[2018-05-09] MEDS ORDERED: Phytonadione IV (Adult)* 2.5 MG in NS 0.9% 50 ML* 50 ML IV ONE (11:00)
[2018-05-09] MEDS: Albuterol/Ipratropium NEB.SOL* Albuterol 2.5 MG/Ipratropium 0.5 MG 3 ML INH PRN ×2 (11:27→20:10)
--- NOTE | 2018-05-09 11:42 | PN ---
Progress Note - Progress Note Date of Service: 05/09/18 Note: Progress Note -- Critical Care 24 hour events -was on fish and NIV yesterdya; weaned off fish overnight; on hiflow now -awake/alert, tachypnea+ but no acc muscle use; comfortable, she feels slightly better -wheezing overnight nebs given, still mild wheezing -tmax 100.4 early this morning, back to 98-99 now -good urien output noted, harding+ -family at bedside -disucssion with patient yesterday about withdrawal of care, discussion this AM and advised some improvement has occurred, would rethink about stopping all therapy. Tele: Sinus tachycardia Vitals: Vital Signs Temp 99.0 F 05/09/18 11:01 Pulse 122 05/09/18 11:01 Resp 24 05/09/18 11:01 BP 158/85 05/09/18 11:00 Pulse Ox 93 05/09/18 11:01 Intake & Output 05/08/18 05/09/18 05/09/18 18:59 06:59 18:59 Intake Total 1281 1043.4 Output Total 223 522 4847 Balance 366 223.4 -1090 Weight 77.6 kg Intake: IV Fluids 972 693.7 Azithromycin 250 Aztreonam 50 60 FFP 213 NS (0.9%) 459 Sodium Bicarbonate 8.4% 633.7 IVPB 220 275 Vancomycin 220 275 Medicated IV 89 74.7 CC - Phenylephrine/ 89 74.7 Neosynephrine Output: Harding 052 225 5352 O2/Vent: vapotherm/hiflow 40lpm 80%; rr 25 Infusions: d5w + 150meq bicarb at 75cc/hr Current Medications: Acetaminophen (Tylenol Adult Liq*) 650 mg PO Q4H PRN PRN Reason: FEVER Albuterol/Ipratropium (Duoneb (Albuterol 2.5 Mg/Ipratropium 0.5 Mg)) 1 neb INH [id number] AWAKE PRN PRN Reason: sob/wheexing Last Admin: 05/08/18 17:56 Dose: 1 neb Bisacodyl (Dulcolax Ec Tab*) 5 mg PO DAILY KACY Docusate Sodium (Colace Cap*) 100 mg PO BID PRN PRN Reason: CONSTIPATION Famotidine (Pepcid Iv*) 20 mg IV SLOW PU DAILY [facility] Azithromycin 500 mg/ Sodium (Chloride) 250 mls @ 250 mls/hr IVPB Q24H [facility] Last Admin: 05/08/18 11:34 Dose: 250 mls/hr Aztreonam 1 gm/ Sodium (Chloride) 50 mls @ 200 mls/hr IVPB Q12H [facility] Last Admin: 05/08/18 23:31 Dose: 200 mls/hr Vancomycin HCl 750 mg/ Sodium (Chloride) 250 mls @ 166.667 mls/hr IVPB Q12H [facility] Last Admin: 05/09/18 08:14 Dose: 166.667 mls/hr Sodium Bicarbonate 150 meq/ (Dextrose) 1,000 mls @ 75 mls/hr IV Q13H [facility] Last Admin: 05/08/18 18:56 Dose: 75 mls/hr Phytonadione 2.5 mg/ Sodium (Chloride) 50.25 mls @ 100.5 mls/hr IV ONCE ONE; Protocol Stop: 05/09/18 11:29 Methylprednisolone Sodium Succinate (Solu-Medrol 40 Mg) 40 mg IV Q12H [facility] Morphine Sulfate (Morphine Vial*) 4 mg IV Q4H PRN PRN Reason: PAIN Last Admin: 05/08/18 10:57 Dose: 4 mg Pharmacy Consult (Vancomycin Per Pharmacy*) 1 note FOLLOW UP .VANC PER PHARMACY [facility] Pharmacy Profile Note (Vancomycin Trough Check) 1 note FOLLOW UP 0830 ONE Stop: 05/10/18 08:31 Physical Exam: General: awake, alert, tachypnea+, no diaphoresis Head: normocephalic, atraumatic HEENT: no pallor, no icterus, moist mucous membranes Neck: soft, supple, no jvd, no stridor CVS: tachycardic, regular, no murmur Resp: bilateral air entry, diffuse right sided rhales throughout with wheezing+ , mild left lower rhales only, no acc muscle use Abdomen: soft, less RUQ tenderness now, nondistended, bowel sounds present Ext: pulses+, warm, no edema Skin: intact Neuro: awake, alert, orientedx3, moving all extremities, no gross focal deficit Labs: Laboratory Results - last 24 hr 05/08/18 05/08/18 05/08/18 05:42 15:01 15:04 WBC RBC Hgb Hct MCV MCH MCHC RDW Plt Count MPV INR (Anticoag Therapy) Sodium 132 L Potassium 4.0 Chloride 107 Carbon Dioxide 14 L* Anion Gap 11 BUN 39 H Creatinine 1.63 H Est GFR ( Amer) 37.4 Est GFR (Non-Af Amer) 30.9 BUN/Creatinine Ratio 23.9 H Glucose 151 H Hemoglobin A1c Lactic Acid 1.9 Calcium 7.5 L Troponin I 0.03 TSH Blood Type A Positive Antibody Screen Negative 05/09/18 05/09/18 05/09/18 05:25 05:25 05:25 WBC 16.5 H RBC 3.20 L Hgb 9.7 L Hct 29 L MCV 90 MCH 30 MCHC 34 RDW 15 Plt Count 185 MPV 7.6 INR (Anticoag Therapy) Sodium 135 Potassium 3.4 L Chloride 107 Carbon Dioxide 19 L Anion Gap 9 BUN 39 H Creatinine 1.41 H Est GFR ( Amer) 44.2 Est GFR (Non-Af Amer) 36.6 BUN/Creatinine Ratio 27.7 H Glucose 225 H Hemoglobin A1c 7.8 H Lactic Acid Calcium 7.8 L Troponin I TSH 0.55 Blood Type Antibody Screen 05/09/18 05:25 WBC RBC Hgb Hct MCV MCH MCHC RDW Plt Count MPV INR (Anticoag Therapy) 7.54 H* Sodium Potassium Chloride Carbon Dioxide Anion Gap BUN Creatinine Est GFR ( Amer) Est GFR (Non-Af Amer) BUN/Creatinine Ratio Glucose Hemoglobin A1c Lactic Acid Calcium Troponin I TSH Blood Type Antibody Screen Imaging: CXR 05/08 Right upper lobe consolidation/middle lobe, some left lower lobe CT chest 05/08 multilobar consolidation RUL greatest, mild perihilar, mild bilateral lower; small effusion (reviewed official report) US - no acute findings noted cxr 05/09 - similar RUL consolidation; mild bibasilar infiltrates+ also; no sig change/worsening Assessment: 72y F w/pmhx of HTN, COPD, PVD, AAA repair, 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 She states increasing shortness of breath x1 week, mild cough+ for ~1 week, no sputum. Chills+ occasionally. Generalized pains+. Pleuritic chest pain on coughing+. Chronic abdominal pain. Went to [facility], [place] [facility] [place] found to have dense RUL pneumonia, hypoxic/tachycardic/tachypneic, hypotensive, started on pressors, admitted to ICU. -Acute hypoxic respiratory failure -Legionella pneumonia, multilobar, RUL>> -Severe sepsis with shock -Metabolic Acidosis -ALYSIA -Coagulopathy 2/2 to warfarin + drug interaction -new onset Diabetes h/o IJ DVT COPD Plan: Neuro- awake/alert. Delirium prec. Asp prec. Avoid sedating agents. CVS- shock 2/2 to sepsis, off fish now. making urine. cont d5w+bicarb for 24 hours more. hg stable. TTE reviewed 05/08 with preserved LV function, mod RV dysfunction. IV abx. Coagulopathy, INR 7+ now, s/p IV Vit K 2.5 this morning, additional IV 2.5mg now. no bleeding noted. if repeat INR more elevated, will given FFP. VitK IV 5mg tomorrow x1. PVD history with left fem-pop and right fem -fem in past. change stress steroids. Resp- mild tachypnea but stable on hiflow 80% 40lpm. maintain high flow rate, decrease fio2 as able. DNR/DNI status as per patient. Bronchodilators PRN q4h. Change hydrocortisone to solumedrol for wheezing, 40mg iv q12h. CXR stable multilobar infiltrates, RUL greatest. Sputum culture pending. IV abx for legionella coverage and empiric till cultures negative. ID- tmax 100.6. Wbc incr to 16. off pressors. maintain current IV abx, till cultures final. on IV steroids also. Legionella+ urine Ag. Cont Azithromycin 500mg iv daily (day#2), cont Aztreonam 1gm q12h (day#2), Vancomycin (day#2). pending blood and sputum cx. GI- start carb consistent/heart healthy, mech soft. change ppi to h2b po daily. RUQ ultrasound neg for acute pathologyl. constipated, start colace, dulcolax prn. prn morphine, limit dosing. Renal- ALYSIA, Cr 2 and decreasing. Metabolic acidosis better. cont d5w+150meq bicarb at 75cc/hr. Making urine, mild positive balance. replete PO kcl. Harding+. Heme- anemia, hg stable. Plt okay. Hold warfarin. INR 7.5. s/p vit k 2.5 x1, repeated 2.5 iv today, Vit K 5mg x1 tomorrow. no bleeding. -patient on azithr, given levaquin initially and clinda; all may interfere with warfarin mechanisms/metabolism and elevate INR. Endo- tsh normal, hba1c 7.8. start aspart sliding scale, change FS to achs. BG elevated with steroids + d5w infusion. will likely need to add long acting insulin coverage. Musculsk- pressure ulcer prophylaxis. oob to chair Wounds- none Nutrition- mech soft, carb consi/heart healthy DVT prophylaxis: SCDs GI prophylaxis: h2b Central Line: no Arterial Line: no Harding Cathetor: yes Disposition: ICU Code Status: DNR/DNI discussed current status and plan with family and patient at bedside. Total Critical Care time is 35 minutes, excluding procedures/teaching Moises Martinez MD [employer] (Electronically Signed)
[2018-05-09] MEDS: Sodium Bicarbonate 8.4% IV* 150 MEQ in D5W 1000 ML BAG* 850 ML IV SCH ×2 (11:44→21:20)
[2018-05-09] MEDS: Bisacodyl EC TAB* 5 MG PO SCH (11:45)
[2018-05-09] MEDS: Azithromycin IV(*) 500 MG in NS 0.9% 250 ML* 250 ML IVPB SCH (11:52)
[2018-05-09] MEDS ORDERED: Phytonadione 5 mg in 50 mL NS over 30 min IV ONE (12:00)
[2018-05-09] MEDS: Aztreonam (*) 1 GM in NS 0.9% 50 ML* 50 ML IVPB SCH ×2 (12:56→23:11)
[2018-05-09] MEDS: methylPREDNISolone SOD 40 MG* 1 ML VIAL IV SCH (15:09)
[2018-05-09] MEDS: Insulin LISPRO* 1 UNITS UNIT SUBCUT SCH ×2 (16:55→21:12)
[2018-05-09] MEDS: Docusate CAP* 100 MG PO SCH (21:09)
[2018-05-09] MEDS: Acetaminophen TAB* 325 MG PO PRN (21:10)
[2018-05-09] MEDS: Morphine VIAL* 4 MG/ML VIAL (1 ml vial) IV PRN (21:12)
[2018-05-10] MEDS: methylPREDNISolone SOD 40 MG* 1 ML VIAL IV SCH ×2 (02:39→12:55)
[2018-05-10] MEDS: Sodium Bicarbonate 8.4% IV* 150 MEQ in D5W 1000 ML BAG* 850 ML IV SCH ×2 (03:59→19:19)
[2018-05-10 05:36] LABS: INR 1.24 (0.77-1.02)
[2018-05-10 05:47] LABS: EGFR Non-African American 48.7 (>60)
[2018-05-10] MEDS: Diltiazem IV* 5 MG/ML 5 ML VIAL (for loading dose/IV Push) (25 MG) IV SLOW PU PRN (05:54)
[2018-05-10 06:13] LABS: Hematocrit 32 % (35-47); Hemoglobin 10.7 g/dl (12.0-16.0); Mean Corpuscular HGB Conc 34 g/dl (31-36); Mean Corpuscular Hemoglobin 30 pg (27-31); Mean Corpuscular Volume 89 fL (80-97); Mean Platelet Volume 7.1 fL (7.4-10.4); Platelet Count 190 10^3/ul (150-450); Red Blood Count 3.53 10^6/ul (4.00-5.40); Red Cell Distribution Width 16 % (10.5-15); White Blood Count 23.7 10^3/ul (3.5-10.8)
[2018-05-10] MEDS: Albuterol/Ipratropium NEB.SOL* Albuterol 2.5 MG/Ipratropium 0.5 MG 3 ML INH PRN ×3 (07:57→19:54)
[2018-05-10] MEDS ORDERED: Phytonadione IV (Adult)* 10 MG/ML 1 ML AMP IV ONE (08:00)
[2018-05-10] MEDS ORDERED: Phytonadione IV (Adult)* 5 MG in NS 0.9% 50 ML* 50 ML IV ONE (08:00)
[2018-05-10] MEDS: Insulin LISPRO* 1 UNITS UNIT SUBCUT SCH ×4 (08:09→20:29)
[2018-05-10] MEDS: Famotidine TAB* 20 MG PO SCH (08:10)
[2018-05-10] MEDS: Docusate CAP* 100 MG PO SCH ×3 (08:10→20:24)
[2018-05-10] MEDS: Bisacodyl EC TAB* 5 MG PO SCH ×2 (08:10→08:12)
[2018-05-10] MEDS ORDERED: Vancomycin Trough Check NOTE FOLLOW UP ONE (08:30)
[2018-05-10] MEDS ORDERED: Famotidine IV* 10 MG/ML 2 ML (20 mg) IV SLOW PU SCH (09:00)
[2018-05-10] MEDS: Vancomycin(*) 750 MG in NS 0.9% 250 ML* 250 ML IVPB SCH ×2 (09:43→20:33)
[2018-05-10] MEDS: Aztreonam (*) 1 GM in NS 0.9% 50 ML* 50 ML IVPB SCH ×2 (12:34→23:30)
[2018-05-10] MEDS: Azithromycin IV(*) 500 MG in NS 0.9% 250 ML* 250 ML IVPB SCH (12:35)
--- NOTE | 2018-05-10 17:35 | PN ---
Progress Note - Progress Note Date of Service: 05/10/18 - Progress note Note: Pt seen and examined at bedside. Pt reports feeling better this am. Overnight events noted Labs, vitals, meds reviewed Active Medications Generic Name Dose Route Start Last Admin Trade Name Freq PRN Reason Stop Dose Admin Acetaminophen 650 mg 05/09/18 17:00 05/09/18 21:10 Tylenol Tab* PO 650 mg Q4H PRN Administration FEVER Albuterol/Ipratropium 1 neb 05/08/18 01:50 05/10/18 11:27 Duoneb (Albuterol 2.5 Mg/Ipratropium 0.5 Mg) INH 1 neb [id number] AWAKE PRN Administration sob/wheexing Bisacodyl 5 mg 05/09/18 11:00 05/10/18 08:12 Dulcolax Ec Tab* PO 05/11/18 09:01 Not Given DAILY KACY Diltiazem HCl 5 mg 05/09/18 21:57 05/10/18 05:54 Diltiazem Iv* IV SLOW PU 5 mg Q6H PRN Administration heart rate Docusate Sodium 100 mg 05/09/18 21:00 05/10/18 08:11 Colace Cap* PO Not Given BID KACY Famotidine 20 mg 05/10/18 09:00 05/10/18 08:10 Pepcid Tab* PO 20 mg DAILY KACY Administration Guaifenesin 5 ml 05/09/18 21:56 Robitussin* PO Q4H PRN COUGH Azithromycin 500 mg/ Sodium 250 mls @ 250 mls/hr 05/08/18 11:00 05/10/18 12: 35 Chloride IVPB 250 mls/hr Q24H KACY Administration Aztreonam 1 gm/ Sodium 50 mls @ 200 mls/hr 05/08/18 11:00 05/10/18 12:34 Chloride IVPB 200 mls/hr Q12H KACY Administration Vancomycin HCl 750 mg/ Sodium 250 mls @ 166.667 mls/hr 05/08/18 21:00 09:43 Chloride IVPB 166.667 mls/hr Q12H KACY Administration Sodium Bicarbonate 150 meq/ 1,000 mls @ 75 mls/hr 05/08/18 19:00 05/10/18 03: 59 Dextrose IV 75 mls/hr Q13H KACY Administration Insulin Human Lispro 0 units 05/09/18 16:30 05/10/18 12:52 Humalog* SUBCUT 6 units ACHS KACY Administration Protocol Methylprednisolone Sodium Succinate 40 mg 05/09/18 14:00 05/10/18 12:55 Solu-Medrol 40 Mg IV 40 mg Q12H KACY Administration Morphine Sulfate 4 mg 05/08/18 10:43 05/09/18 21:12 Morphine Vial* IV 4 mg Q4H PRN Administration PAIN Pharmacy Consult 1 note 05/08/18 10:00 Vancomycin Per Pharmacy* FOLLOW UP .VANC PER PHARMACY [facility] Pharmacy Profile Note 1 note 05/11/18 08:30 Vancomycin Trough Check FOLLOW UP 05/11/18 08:31 0830 ONE Vital Signs Temp Pulse Resp BP Pulse Ox 99.7 F 109 19 142/86 94 05/10/18 16:01 05/10/18 16:01 05/10/18 16:01 05/10/18 16:00 05/10/18 16:01 O/E: Pt in NAD HEENT: PERRLA, No JVD Lungs: Diminished air entry b/l, crackles +, scattered wheeze+ CVS: S1, S2+, regular Abd: Obese, BS+ Ext: Normal ROM Skin: No rash Neuro: No focal deficits Laboratory Results - last 24 hr 05/08/18 05/09/18 05/10/18 10:15 20:36 05:18 WBC RBC Hgb Hct MCV MCH MCHC RDW Plt Count MPV INR (Anticoag Therapy) Sodium 136 Potassium 4.0 Chloride 107 Carbon Dioxide 24 Anion Gap 5 BUN 34 H Creatinine 1.10 H Est GFR ( Amer) 58.9 Est GFR (Non-Af Amer) 48.7 BUN/Creatinine Ratio 30.9 H Glucose 176 H POC Glucose (mg/dL) 205 H Calcium 8.4 L Vancomycin Trough Mycoplasma pneumon IgG Negative Mycoplasma pneumon IgM Negative 05/10/18 05/10/18 05/10/18 05:18 06:03 06:05 WBC 23.7 H RBC 3.53 L Hgb 10.7 L Hct 32 L MCV 89 MCH 30 MCHC 34 RDW 16 H Plt Count 190 MPV 7.1 L INR (Anticoag Therapy) 1.24 H Sodium Potassium Chloride Carbon Dioxide Anion Gap BUN Creatinine Est GFR ( Amer) Est GFR (Non-Af Amer) BUN/Creatinine Ratio Glucose POC Glucose (mg/dL) Calcium Vancomycin Trough 19.9 Mycoplasma pneumon IgG Mycoplasma pneumon IgM 05/10/18 12:46 WBC RBC Hgb Hct MCV MCH MCHC RDW Plt Count MPV INR (Anticoag Therapy) Sodium Potassium Chloride Carbon Dioxide Anion Gap BUN Creatinine Est GFR ( Amer) Est GFR (Non-Af Amer) BUN/Creatinine Ratio Glucose POC Glucose (mg/dL) 253 H Calcium Vancomycin Trough Mycoplasma pneumon IgG Mycoplasma pneumon IgM TTE reviewed 05/08 with preserved LV function, mod RV dysfunction. CXR stable multilobar infiltrates A/P: 72y F w/pmhx of HTN, COPD, PVD, AAA repair, IJ DVT on warfarin; transferred from [facility] for septic shock secondary to pneumonia from Legionella, required pressors, currently off, was placed on high flow and NIPPV -Acute hypoxic respiratory failure -Legionella pneumonia, multilobar -Severe sepsis with shock -Metabolic Acidosis -ALYSIA -Coagulopathy 2/2 to warfarin + drug interaction -New onset Diabetes -h/o IJ DVT -COPD Pt is awake/alert. Denies pain Admitted with shock 2/2 to sepsis, off pressors. IV abx. Coagulopathy, INR 7+ on admission, s/p IV Vit K, normal INR now Was requiring hiflow 100% 40lpm this am, will titrate FiO2 as tolerated Bronchodilators PRN q4h. c/w solumedrol 40mg iv q12h Cont Azithromycin 500mg iv daily (day#3), cont Aztreonam 1gm q12h (day#3), Vancomycin (day#3) susceptibilities c/w carb consistent/heart healthy diet hba1c 7.8. Insulin sliding scale achs. BG elevated with steroids + d5w infusion Pressure ulcer prophylaxis. oob to chair Wounds- none DVT prophylaxis: SCDs, will restart Warfarin GI prophylaxis: h2b Bnoe Catheter: Will d/c today Code Status: DNR/DNI Discussed current status and plan with family and patient at bedside.
[2018-05-10] MEDS: Warfarin TAB(*) 2 MG PO SCH (19:39)
[2018-05-10] MEDS: Morphine VIAL* 4 MG/ML VIAL (1 ml vial) IV PRN (21:05)
[2018-05-11] MEDS: methylPREDNISolone SOD 40 MG* 1 ML VIAL IV SCH ×2 (01:54→14:54)
[2018-05-11 06:38] LABS: INR 1.68 (0.77-1.02)
[2018-05-11 07:08] LABS: Hematocrit 36 % (35-47); Mean Corpuscular HGB Conc 34 g/dl (31-36); Mean Corpuscular Hemoglobin 30 pg (27-31); Mean Corpuscular Volume 90 fL (80-97); Mean Platelet Volume 7.6 fL (7.4-10.4); Platelet Count 185 10^3/ul (150-450); Red Blood Count 4.02 10^6/ul (4.00-5.40); Red Cell Distribution Width 16 % (10.5-15); White Blood Count 18.4 10^3/ul (3.5-10.8)
[2018-05-11] MEDS: Albuterol/Ipratropium NEB.SOL* Albuterol 2.5 MG/Ipratropium 0.5 MG 3 ML INH PRN (07:16)
[2018-05-11] MEDS: Bisacodyl EC TAB* 5 MG PO SCH (07:52)
[2018-05-11] MEDS: Docusate CAP* 100 MG PO SCH ×2 (07:52→20:45)
[2018-05-11] MEDS ORDERED: Albuterol/Ipratropium NEB.SOL* Albuterol 2.5 MG/Ipratropium 0.5 MG 3 ML INH PRN (07:55)
[2018-05-11] MEDS: Insulin LISPRO* 1 UNITS UNIT SUBCUT SCH ×4 (08:11→20:57)
[2018-05-11] MEDS: Famotidine TAB* 20 MG PO SCH (08:11)
[2018-05-11] MEDS ORDERED: Vancomycin Trough Check NOTE FOLLOW UP ONE (08:30)
[2018-05-11] MEDS: Vancomycin(*) 750 MG in NS 0.9% 250 ML* 250 ML IVPB SCH (09:45)
--- NOTE | 2018-05-11 10:29 | PN ---
Progress Note - Progress Note Date of Service: 05/11/18 - Progress note Note: Pt seen and examined at bedside. Pt reports feeling slightly better, still requiring high flow and 100% FiO2. Able to expectorate signficant amounts of phleghm after metanebs Active Medications Generic Name Dose Route Start Last Admin Trade Name Freq PRN Reason Stop Dose Admin Acetaminophen 650 mg 05/09/18 17:00 05/09/18 21:10 Tylenol Tab* PO 650 mg Q4H PRN Administration FEVER Albuterol/Ipratropium 1 neb 05/11/18 11:00 Duoneb (Albuterol 2.5 Mg/Ipratropium 0.5 Mg) INH [id number] AWAKE KACY Albuterol/Ipratropium 1 neb 05/11/18 07:55 Duoneb (Albuterol 2.5 Mg/Ipratropium 0.5 Mg) INH Q2H PRN SOB/WHEEZING Diltiazem HCl 5 mg 05/09/18 21:57 05/10/18 05:54 Diltiazem Iv* IV SLOW PU 5 mg Q6H PRN Administration heart rate Docusate Sodium 100 mg 05/09/18 21:00 05/11/18 07:52 Colace Cap* PO Not Given BID KACY Famotidine 20 mg 05/10/18 09:00 05/11/18 08:11 Pepcid Tab* PO 20 mg DAILY KACY Administration Guaifenesin 5 ml 05/09/18 21:56 Robitussin* PO Q4H PRN COUGH Azithromycin 500 mg/ Sodium 250 mls @ 250 mls/hr 05/08/18 11:00 05/10/18 12: 35 Chloride IVPB 250 mls/hr Q24H KACY Administration Aztreonam 1 gm/ Sodium 50 mls @ 200 mls/hr 05/08/18 11:00 05/10/18 23:30 Chloride IVPB 200 mls/hr Q12H KACY Administration Vancomycin HCl 750 mg/ Sodium 250 mls @ 166.667 mls/hr 05/08/18 21:00 09:45 Chloride IVPB 166.667 mls/hr Q12H KACY Administration Insulin Human Lispro 0 units 05/09/18 16:30 05/11/18 08:11 Humalog* SUBCUT 2 units ACHS KACY Administration Protocol Methylprednisolone Sodium Succinate 40 mg 05/09/18 14:00 05/11/18 01:54 Solu-Medrol 40 Mg IV 40 mg Q12H [facility] Administration Morphine Sulfate 4 mg 05/11/18 09:57 Morphine Vial* IV Q4H PRN PAIN Pharmacy Consult 1 note 05/08/18 10:00 Vancomycin Per Pharmacy* FOLLOW UP .VANC PER PHARMACY [facility] Warfarin Sodium 2 mg 05/10/18 18:00 05/10/18 19:39 Coumadin Tab(*) PO 2 mg DAILY@1700 [facility] Administration Protocol Vital Signs Temp Pulse Resp BP Pulse Ox 97.7 F 99 20 141/95 94 05/11/18 08:38 05/11/18 08:38 05/11/18 08:38 05/11/18 08:38 05/11/18 08:38 O/E: Pt in NAD HEENT: PERRLA, NO JVD Lungs: Diminished air entry b/l, scattered wheeze+ CVS: S1, S2+, tachycardic Abd: Soft, BS+ Ext: Normal ROM Skin: No rash Neuro: No focal deficits Laboratory Results - last 24 hr 05/08/18 05/10/18 05/10/18 10:15 06:05 08:00 WBC RBC Hgb Hct MCV MCH MCHC RDW Plt Count MPV INR (Anticoag Therapy) Sodium Potassium Chloride Carbon Dioxide Anion Gap BUN Creatinine Est GFR ( Amer) Est GFR (Non-Af Amer) BUN/Creatinine Ratio Glucose POC Glucose (mg/dL) 229 H Calcium Vancomycin Trough 19.9 Mycoplasma pneumon IgG Negative Mycoplasma pneumon IgM Negative 05/10/18 05/10/18 05/10/18 12:46 17:30 20:24 WBC RBC Hgb Hct MCV MCH MCHC RDW Plt Count MPV INR (Anticoag Therapy) Sodium Potassium Chloride Carbon Dioxide Anion Gap BUN Creatinine Est GFR ( Amer) Est GFR (Non-Af Amer) BUN/Creatinine Ratio Glucose POC Glucose (mg/dL) 253 H 271 H 334 H Calcium Vancomycin Trough Mycoplasma pneumon IgG Mycoplasma pneumon IgM 05/11/18 05/11/18 05/11/18 06:08 06:08 06:08 WBC 18.4 H RBC 4.02 Hgb 12.0 Hct 36 MCV 90 MCH 30 MCHC 34 RDW 16 H Plt Count 185 MPV 7.6 INR (Anticoag Therapy) 1.68 H Sodium 137 Potassium 4.0 Chloride 102 Carbon Dioxide 29 Anion Gap 6 BUN 31 H Creatinine 0.99 H Est GFR ( Amer) 66.5 Est GFR (Non-Af Amer) 55.0 BUN/Creatinine Ratio 31.3 H Glucose 174 H POC Glucose (mg/dL) Calcium 8.5 L Vancomycin Trough Mycoplasma pneumon IgG Mycoplasma pneumon IgM 05/11/18 05/11/18 07:58 08:40 WBC RBC Hgb Hct MCV MCH MCHC RDW Plt Count MPV INR (Anticoag Therapy) Sodium Potassium Chloride Carbon Dioxide Anion Gap BUN Creatinine Est GFR ( Amer) Est GFR (Non-Af Amer) BUN/Creatinine Ratio Glucose POC Glucose (mg/dL) 196 H Calcium Vancomycin Trough 20.6 Mycoplasma pneumon IgG Mycoplasma pneumon IgM TTE 05/08 with preserved LV function, mod RV dysfunction. 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 Denies pain. Neurologically intact, no delirium Admitted with shock 2/2 to sepsis, off pressors. hypertensive now, will restart her home meds. Pt on metoprolol 25 and Lisinopril 5mg, will start Lisinopril and add metoprolol when bronchospasm is improved Coagulopathy, INR 7+ on admission, s/p IV Vit K, normal INR now. restarted Coumadin, dose as per INR Still requiring hiflow 100% 35lpm this am, will titrate FiO2 as tolerated. Is mouth breather, might do better with oxymask. Will given Morphine prn Bronchodilators q4h with metanebs. Chest PT, vest therapy c/w solumedrol 40mg iv q12h, will not taper yet Cont Azithromycin 500mg iv daily (day#4/5), cont Aztreonam 1gm q12h (day#4), Vancomycin (day#4), sputum cx showed normal opal, will resend c/w carb consistent/heart healthy diet hba1c 7.8. Insulin sliding scale achs. BG elevated with steroids Pressure ulcer prophylaxis. oob to chair Wounds- none DVT prophylaxis: SCDs,restarted Warfarin GI prophylaxis: h2b Bone Catheter: d/c ed Code Status: DNR/DNI D/w plan with patient and family at bedside
[2018-05-11] MEDS: Azithromycin IV(*) 500 MG in NS 0.9% 250 ML* 250 ML IVPB SCH (11:00)
[2018-05-11] MEDS: Aztreonam (*) 1 GM in NS 0.9% 50 ML* 50 ML IVPB SCH ×2 (11:00→22:45)
[2018-05-11] MEDS: Morphine VIAL* 4 MG/ML VIAL (1 ml vial) IV PRN ×3 (11:04→20:32)
[2018-05-11] MEDS: Lisinopril TAB* 5 MG PO SCH (11:04)
[2018-05-11] MEDS: Albuterol/Ipratropium NEB.SOL* Albuterol 2.5 MG/Ipratropium 0.5 MG 3 ML INH SCH ×4 (11:12→23:24)
[2018-05-11] MEDS: Warfarin TAB(*) 2 MG PO SCH (17:08)
[2018-05-11] MEDS: Diltiazem IV* 5 MG/ML 5 ML VIAL (for loading dose/IV Push) (25 MG) IV SLOW PU PRN (19:25)
[2018-05-11] MEDS ORDERED: Adenosine* 3 MG/ML VIAL ONE (19:39)
[2018-05-11] MEDS ORDERED: Diltiazem DRIP* 100 MG/100 ML ADDV.BAG IVPB ONE (19:46)
[2018-05-11] MEDS: Metoprolol Tartrate IV* 1 MG/ML 5 ML VIAL ONE ×2 (19:55→20:05)
[2018-05-12] MEDS: methylPREDNISolone SOD 40 MG* 1 ML VIAL IV SCH ×2 (02:04→14:28)
[2018-05-12] MEDS: Albuterol/Ipratropium NEB.SOL* Albuterol 2.5 MG/Ipratropium 0.5 MG 3 ML INH SCH ×6 (03:51→23:51)
[2018-05-12] MEDS: Vancomycin(*) 1,250 MG in NS 0.9% 250 ML* 250 ML IVPB SCH (05:51)
[2018-05-12 06:17] LABS: Hematocrit 32 % (35-47); Hemoglobin 10.6 g/dl (12.0-16.0); Mean Corpuscular HGB Conc 33 g/dl (31-36); Mean Corpuscular Hemoglobin 30 pg (27-31); Mean Corpuscular Volume 90 fL (80-97); Platelet Count 202 10^3/ul (150-450); Red Blood Count 3.57 10^6/ul (4.00-5.40); Red Cell Distribution Width 16 % (10.5-15); White Blood Count 19.6 10^3/ul (3.5-10.8)
[2018-05-12 06:37] LABS: EGFR Non-African American 59.1 (>60)
[2018-05-12 06:43] LABS: INR 2.32 (0.77-1.02)
[2018-05-12] MEDS: Docusate CAP* 100 MG PO SCH ×2 (07:34→21:23)
[2018-05-12] MEDS: Insulin LISPRO* 1 UNITS UNIT SUBCUT SCH ×4 (08:41→21:21)
[2018-05-12] MEDS: Lisinopril TAB* 5 MG PO SCH (08:41)
[2018-05-12] MEDS: Famotidine TAB* 20 MG PO SCH (08:41)
[2018-05-12] MEDS: Aztreonam (*) 1 GM in NS 0.9% 50 ML* 50 ML IVPB SCH ×2 (11:05→23:14)
[2018-05-12] MEDS: Azithromycin IV(*) 500 MG in NS 0.9% 250 ML* 250 ML IVPB SCH (11:45)
--- NOTE | 2018-05-12 16:25 | PN ---
Progress Note - Progress Note Date of Service: 05/12/18 - Progress note Note: Pt seen and examined at bedside C/o fatigue, not feeling like getting out of bed to chair. Having cough productive of streaks of blood. O/n Events: Had episode of A.fib with RVR, was started on Cardizem and is of drip this am and in sinus rhythm Continues to require high flow Active Medications Generic Name Dose Route Start Last Admin Trade Name Freq PRN Reason Stop Dose Admin Acetaminophen 650 mg 05/09/18 17:00 05/09/18 21:10 Tylenol Tab* PO 650 mg Q4H PRN Administration FEVER Albuterol/Ipratropium 1 neb 05/11/18 11:00 05/12/18 15:13 Duoneb (Albuterol 2.5 Mg/Ipratropium 0.5 Mg) INH 1 neb [id number] AWAKE KACY Administration Albuterol/Ipratropium 1 neb 05/11/18 07:55 Duoneb (Albuterol 2.5 Mg/Ipratropium 0.5 Mg) INH Q2H PRN SOB/WHEEZING Diltiazem HCl 5 mg 05/09/18 21:57 05/11/18 19:25 Diltiazem Iv* IV SLOW PU 5 mg Q6H PRN Administration heart rate Docusate Sodium 100 mg 05/09/18 21:00 05/12/18 07:34 Colace Cap* PO Not Given BID KACY Famotidine 20 mg 05/10/18 09:00 05/12/18 08:41 Pepcid Tab* PO 20 mg DAILY KACY Administration Guaifenesin 5 ml 05/09/18 21:56 Robitussin* PO Q4H PRN COUGH Azithromycin 500 mg/ Sodium 250 mls @ 250 mls/hr 05/08/18 11:00 05/12/18 11: 45 Chloride IVPB 05/12/18 23:00 250 mls/hr Q24H KACY Administration Aztreonam 1 gm/ Sodium 50 mls @ 200 mls/hr 05/08/18 11:00 05/12/18 11:05 Chloride IVPB 200 mls/hr Q12H KACY Administration Vancomycin HCl 1,250 mg/ 250 mls @ 166.667 mls/hr 05/12/18 06:00 05/12/18 05: 51 Sodium Chloride IVPB 166.667 mls/hr Q24H KACY Administration Insulin Human Lispro 0 units 05/09/18 16:30 05/12/18 12:06 Humalog* SUBCUT 2 units ACHS [facility] Administration Protocol Lisinopril 5 mg 05/11/18 11:00 05/12/18 08:41 Prinivil Tab* PO 5 mg DAILY KACY Administration Methylprednisolone Sodium Succinate 40 mg 05/09/18 14:00 05/12/18 14:28 Solu-Medrol 40 Mg IV 40 mg Q12H KACY Administration Morphine Sulfate 4 mg 05/11/18 09:57 05/11/18 20:32 Morphine Vial* IV 2 mg Q4H PRN Administration PAIN Pharmacy Consult 1 note 05/08/18 10:00 Vancomycin Per Pharmacy* FOLLOW UP .VANC PER PHARMACY [facility] Pharmacy Profile Note 1 note 05/11/18 11:00 Coumadin Per Pharmacy* FOLLOW UP .PER PHARMACY [facility] Protocol Pharmacy Profile Note 1 note 05/13/18 05:30 Vancomycin Trough Check FOLLOW UP 05/13/18 05:31 ONCE ONE Warfarin Sodium 2 mg 05/12/18 17:00 Coumadin Tab(*) PO 05/12/18 17:01 1700 ONE Vital Signs Temp Pulse Resp BP Pulse Ox 97.5 F 101 22 127/82 91 05/12/18 15:01 05/12/18 15:18 05/12/18 15:18 05/12/18 15:00 05/12/18 15:18 O/E: Pt in NAD HEENT: PERRLA, NO JVD Lungs: Rhonchi+, coarse breath sounds CVS: S1, S2+, regular Abd: Obese, BS+, NT Ext: Normal ROM Skin:No rash Neuro: NO focal deficits Laboratory Results - last 24 hr 05/11/18 05/11/18 05/12/18 17:13 20:49 05:50 WBC RBC Hgb Hct MCV MCH MCHC RDW Plt Count MPV INR (Anticoag Therapy) Sodium 136 Potassium 4.6 Chloride 103 Carbon Dioxide 29 Anion Gap 4 BUN 34 H Creatinine 0.93 Est GFR ( Amer) 71.5 Est GFR (Non-Af Amer) 59.1 BUN/Creatinine Ratio 36.6 H Glucose 177 H POC Glucose (mg/dL) 319 H 263 H Calcium 8.5 L Magnesium 2.1 05/12/18 05/12/18 05/12/18 05:50 05:50 07:48 WBC 19.6 H RBC 3.57 L Hgb 10.6 L Hct 32 L MCV 90 MCH 30 MCHC 33 RDW 16 H Plt Count 202 MPV 8.0 INR (Anticoag Therapy) 2.32 H Sodium Potassium Chloride Carbon Dioxide Anion Gap BUN Creatinine Est GFR ( Amer) Est GFR (Non-Af Amer) BUN/Creatinine Ratio Glucose POC Glucose (mg/dL) 206 H Calcium Magnesium 05/12/18 12:01 WBC RBC Hgb Hct MCV MCH MCHC RDW Plt Count MPV INR (Anticoag Therapy) Sodium Potassium Chloride Carbon Dioxide Anion Gap BUN Creatinine Est GFR ( Amer) Est GFR (Non-Af Amer) BUN/Creatinine Ratio Glucose POC Glucose (mg/dL) 198 H Calcium Magnesium TTE 05/08 with preserved LV function, mod RV dysfunction. CXR 05/09 stable multilobar infiltrates CXR 05/11- Slight progression of air space opacities on right side A/P: 72y F w/pmhx of HTN, COPD, PVD, AAA repair, IJ DVT on warfarin; transferred from [facility] for septic shock secondary to pneumonia from Legionella, required pressors, currently off, was placed on high flow and NIPPV -Acute hypoxic respiratory failure, no significant improvement -Legionella pneumonia, multilobar -Severe sepsis with shock, off pressors -ALYSIA, resolved -Coagulopathy 2/2 to warfarin + drug interaction, resolved -New onset Diabetes, controlled -h/o IJ DVT on Coumadin -COPD with acute exacerbation Pt is awake/alert. Denies pain. Neurologically intact, no delirium Admitted with shock 2/2 to sepsis, off pressors. Pt on metoprolol 25 and Lisinopril 5mg at home, started on Lisinopril, will add metoprolol if BP permits. Had episode of A.fib with RVR last night. Currently in sinus. Coagulopathy resolved, c/w Coumadin, dose as per INR Still requiring hiflow 100% 25lpm this am, will titrate FiO2 as tolerated. Not toelrating salter. Having copius secretions. Tolerating vest and metanebs. Morphine prn Bronchodilators q4h with metanebs. c/w solumedrol 40mg iv q12h, will not taper yet D/c Azithromycin 500mg iv daily (day#5/5), cont Aztreonam 1gm q12h (day#5), Vancomycin (day#5), sputum cx showed normal opal, rpt cx pending c/w carb consistent/heart healthy diet hba1c 7.8. Insulin sliding scale achs. BG elevated with steroids Pressure ulcer prophylaxis. OOB to chair as tolerated Wounds- none DVT prophylaxis: SCDs, Warfarin GI prophylaxis: h2b Bone Catheter: d/c ed Code Status: DNR/DNI D/w plan with patient and bedside RN
[2018-05-12] MEDS ORDERED: Warfarin TAB(*) 2 MG PO ONE (17:00)
[2018-05-13] MEDS: methylPREDNISolone SOD 40 MG* 1 ML VIAL IV SCH ×2 (02:18→13:37)
[2018-05-13] MEDS: Albuterol/Ipratropium NEB.SOL* Albuterol 2.5 MG/Ipratropium 0.5 MG 3 ML INH SCH ×6 (03:16→23:03)
[2018-05-13 05:20] LABS: Hematocrit 33 % (35-47); Hemoglobin 10.7 g/dl (12.0-16.0); Mean Corpuscular HGB Conc 33 g/dl (31-36); Mean Corpuscular Hemoglobin 30 pg (27-31); Mean Corpuscular Volume 91 fL (80-97); Mean Platelet Volume 7.7 fL (7.4-10.4); Platelet Count 228 10^3/ul (150-450); Red Blood Count 3.58 10^6/ul (4.00-5.40); Red Cell Distribution Width 16 % (10.5-15); White Blood Count 15.6 10^3/ul (3.5-10.8)
[2018-05-13 05:24] LABS: INR 2.85 (0.77-1.02)
[2018-05-13] MEDS ORDERED: Vancomycin Trough Check NOTE FOLLOW UP ONE (05:30)
[2018-05-13 05:38] LABS: EGFR Non-African American 57.7 (>60)
[2018-05-13] MEDS: Vancomycin(*) 1,250 MG in NS 0.9% 250 ML* 250 ML IVPB SCH (06:17)
[2018-05-13] MEDS: guaiFENesin LIQ* 100 MG/5 ML UDC PO PRN (08:21)
[2018-05-13] MEDS: Lisinopril TAB* 5 MG PO SCH (08:23)
[2018-05-13] MEDS: Docusate CAP* 100 MG PO SCH ×2 (08:23→20:15)
[2018-05-13] MEDS: Famotidine TAB* 20 MG PO SCH (08:23)
[2018-05-13] MEDS: Insulin LISPRO* 1 UNITS UNIT SUBCUT SCH ×4 (08:47→20:15)
[2018-05-13] MEDS: Aztreonam (*) 1 GM in NS 0.9% 50 ML* 50 ML IVPB SCH ×2 (10:53→23:03)
[2018-05-13] MEDS ORDERED: Acetylcysteine INHALATION SOL* 200 MG/ML NEB.SOLN 10 ML ONE (11:37)
[2018-05-13] MEDS: Acetylcysteine INHALATION SOL* 200 MG/ML NEB.SOLN 10 ML INH SCH ×4 (11:54→23:02)
--- NOTE | 2018-05-13 12:02 | PN ---
Progress Note - Progress Note Date of Service: 05/13/18 - Progress note Note: Pt seen and examined at bedside. No new complaints No acute evnets o/n. Continues to need high flow at 40L and 100% FiO2 Meds, labs, vitals, I/O reviewed Active Medications Generic Name Dose Route Start Last Admin Trade Name Freq PRN Reason Stop Dose Admin Acetaminophen 650 mg 05/09/18 17:00 05/09/18 21:10 Tylenol Tab* PO 650 mg Q4H PRN Administration FEVER Acetylcysteine 400 mg 05/13/18 11:45 Mucomyst Inhalation Lianna* INH [id number] AWAKE KACY Albuterol/Ipratropium 1 neb 05/11/18 11:00 05/13/18 07:59 Duoneb (Albuterol 2.5 Mg/Ipratropium 0.5 Mg) INH 1 neb [id number] AWAKE KACY Administration Albuterol/Ipratropium 1 neb 05/11/18 07:55 Duoneb (Albuterol 2.5 Mg/Ipratropium 0.5 Mg) INH Q2H PRN SOB/WHEEZING Diltiazem HCl 5 mg 05/09/18 21:57 05/11/18 19:25 Diltiazem Iv* IV SLOW PU 5 mg Q6H PRN Administration heart rate Docusate Sodium 100 mg 05/09/18 21:00 05/13/18 08:23 Colace Cap* PO 100 mg BID KACY Administration Famotidine 20 mg 05/10/18 09:00 05/13/18 08:23 Pepcid Tab* PO 20 mg DAILY KACY Administration Guaifenesin 5 ml 05/09/18 21:56 05/13/18 08:21 Robitussin* PO 5 ml Q4H PRN Administration COUGH Aztreonam 1 gm/ Sodium 50 mls @ 200 mls/hr 05/08/18 11:00 05/13/18 10:53 Chloride IVPB 200 mls/hr Q12H KACY Administration Vancomycin HCl 750 mg/ Sodium 250 mls @ 166.667 mls/hr 05/13/18 17:00 Chloride IVPB 1700 KACY Insulin Human Lispro 0 units 05/09/18 16:30 05/13/18 08:47 Humalog* SUBCUT 6 units ACHS KACY Administration Protocol Lisinopril 5 mg 05/11/18 11:00 05/13/18 08:23 Prinivil Tab* PO 5 mg DAILY KACY Administration Methylprednisolone Sodium Succinate 40 mg 05/09/18 14:00 05/13/18 02:18 Solu-Medrol 40 Mg IV 40 mg Q12H KACY Administration Morphine Sulfate 4 mg 05/11/18 09:57 05/11/18 20:32 Morphine Vial* IV 2 mg Q4H PRN Administration PAIN Pharmacy Consult 1 note 05/08/18 10:00 Vancomycin Per Pharmacy* FOLLOW UP .VANC PER PHARMACY [facility] Pharmacy Profile Note 1 note 05/11/18 11:00 Coumadin Per Pharmacy* FOLLOW UP .PER PHARMACY [facility] Protocol Pharmacy Profile Note 1 note 05/16/18 17:00 Vancomycin Trough Check FOLLOW UP 05/16/18 17:01 1700 ONE Warfarin Sodium 1.5 mg 05/13/18 17:00 Coumadin Tab(*) PO 05/13/18 17:01 1700 ONE Vital Signs Temp Pulse Resp BP Pulse Ox 97.7 F 88 19 155/94 95 05/13/18 11:00 05/13/18 11:00 05/13/18 11:00 05/13/18 10:58 05/13/18 11:00 O/E: Pt in NAD HEENT: PERRLA, No JVD Lungs: Coarse breath sounds, diminished air entry on right CVS: S1, S2+, tachycardic Abd: Soft, BS+ Ext: Normal ROM Skin: No rash Neuro: No focal deficits Laboratory Results - last 24 hr 05/12/18 05/12/18 05/13/18 16:54 21:16 05:00 WBC RBC Hgb Hct MCV MCH MCHC RDW Plt Count MPV INR (Anticoag Therapy) Sodium Potassium Chloride Carbon Dioxide Anion Gap BUN Creatinine Est GFR ( Amer) Est GFR (Non-Af Amer) BUN/Creatinine Ratio Glucose POC Glucose (mg/dL) 234 H 335 H Calcium Vancomycin Trough 21.0 05/13/18 05/13/18 05/13/18 05:00 05:00 05:00 WBC 15.6 H RBC 3.58 L Hgb 10.7 L Hct 33 L MCV 91 MCH 30 MCHC 33 RDW 16 H Plt Count 228 MPV 7.7 INR (Anticoag Therapy) 2.85 H Sodium 135 Potassium 4.1 Chloride 102 Carbon Dioxide 28 Anion Gap 5 BUN 37 H Creatinine 0.95 Est GFR ( Amer) 69.8 Est GFR (Non-Af Amer) 57.7 BUN/Creatinine Ratio 38.9 H Glucose 257 H POC Glucose (mg/dL) Calcium 8.2 L Vancomycin Trough 05/13/18 05/13/18 08:34 12:10 WBC RBC Hgb Hct MCV MCH MCHC RDW Plt Count MPV INR (Anticoag Therapy) Sodium Potassium Chloride Carbon Dioxide Anion Gap BUN Creatinine Est GFR ( Amer) Est GFR (Non-Af Amer) BUN/Creatinine Ratio Glucose POC Glucose (mg/dL) 269 H 249 H Calcium Vancomycin Trough TTE 05/08 with preserved LV function, mod RV dysfunction. CXR 05/09 stable multilobar infiltrates CXR 05/11- Slight progression of air space opacities on right side A/P: 72y F w/pmhx of HTN, COPD, PVD, AAA repair, IJ DVT on warfarin; transferred from [facility] for septic shock secondary to pneumonia from Legionella, required pressors, currently off, was placed on high flow and NIPPV Continues to require high FIO2 CXR from this am was reviewed- Worsening consolidation in RUL, slight improvement in RLL. Patchy air space opacity in LLL Pt on metoprolol 25 and Lisinopril 5mg at home, started on Lisinopril, will add metoprolol today. No further episodes of A.fib, currently in sinus. Coagulopathy resolved, c/w Coumadin, dose as per INR Having copious secretions, might have mucus plugging of RUL. Tolerating vest and metanebs. Will add mucomyst. Morphine prn Bronchodilators q4h with metanebs. c/w solumedrol 40mg iv q12h, will not taper yet D/ashleigh Azithromycin after 5 day course, cont Aztreonam 1gm q12h (day#6), Vancomycin (day#6), rpt sputum cx showed normal opal c/w carb consistent/heart healthy diet hba1c 7.8. Insulin sliding scale achs. Pressure ulcer prophylaxis. OOB to chair as tolerated Wounds- none DVT prophylaxis: SCDs, Warfarin GI prophylaxis: h2b Bone Catheter: d/c ed Code Status: DNR/DNI D/w plan with patient and bedside RN
[2018-05-13] MEDS ORDERED: Warfarin TAB(*) 1 MG PO ONE (17:00)
[2018-05-13] MEDS: Vancomycin(*) 750 MG in NS 0.9% 250 ML* 250 ML IVPB SCH (17:01)
[2018-05-13] MEDS: Morphine VIAL* 4 MG/ML VIAL (1 ml vial) IV PRN (20:56)
[2018-05-14] MEDS: methylPREDNISolone SOD 40 MG* 1 ML VIAL IV SCH ×2 (02:05→14:32)
[2018-05-14] MEDS: Albuterol/Ipratropium NEB.SOL* Albuterol 2.5 MG/Ipratropium 0.5 MG 3 ML INH SCH ×5 (03:02→23:05)
[2018-05-14] MEDS: Acetylcysteine INHALATION SOL* 200 MG/ML NEB.SOLN 10 ML INH SCH ×4 (03:02→19:22)
[2018-05-14 06:24] LABS: INR 3.91 (0.77-1.02)
[2018-05-14] MEDS: Lisinopril TAB* 5 MG PO SCH (08:24)
[2018-05-14] MEDS: Insulin LISPRO* 1 UNITS UNIT SUBCUT SCH ×4 (08:24→20:44)
[2018-05-14] MEDS: Docusate CAP* 100 MG PO SCH ×2 (08:24→20:46)
[2018-05-14] MEDS: Famotidine TAB* 20 MG PO SCH (08:25)
--- NOTE | 2018-05-14 09:44 | PN ---
Date of Service: 05/14/18 Critical Care Services: 72F with htn, copd, aaa repair, IJ DVT presents with legionella pneumonia on HFNC. 05/14: Appears comfortable. Still on 100% fio2. Vital Signs: Temp Pulse Resp BP SpO2 FiO2 97.5 F 93 18 151/73 93 100 05/14/18 08:01 05/14/18 08:01 05/14/18 08:01 05/14/18 08:00 05/14/18 08:01 05/14 08:00 Physical Exam: Gen - nad heent - ncat, eomi, perrl neck - no jvd cv - s1/s2, no murmur lungs - +ronchi r > l abd - soft, nt ext - no cce neuro - non-focal Fluid Balance (Past 24 Hours): I= O= Net Intake & Output 05/12/18 05/13/18 05/14/18 05/15/18 06:59 06:59 06:59 06:59 Intake Total 1592 2046 1079 75 Output Total 2098 1800 2075 50 Balance -506 246 -996 25 Weight 80.932 kg 84.5 kg 86.1 kg Intake: IV Fluids 729 675 88 Azithromycin 250 250 Aztreonam 126 NS (0.9%) 103 175 88 Vancomycin 250 250 IVPB 85 61 343 Azithromycin 280 Aztreonam 85 61 63 Medicated IV 23 cardizem 23 Oral 755 1310 648 75 Output: Urine 130 Bone 1968 1800 2075 50 Straight Cath 0 Labs: Laboratory Results - last 24 hr 05/13/18 05/13/18 05/13/18 12:10 16:46 20:08 INR (Anticoag Therapy) POC Glucose (mg/dL) 249 H 266 H 322 H 05/14/18 05/14/18 06:00 08:13 INR (Anticoag Therapy) 3.91 H POC Glucose (mg/dL) 234 H Studies: CXR 05/08 IMPRESSION: RIGHT UPPER LOBAR INFILTRATE, UNCHANGED. CT Chest 05/08 IMPRESSION: 1. There is mediastinal lymphadenopathy. 2. There is consolidation involving most of the right upper lobe with some minimal air bronchograms present and there is additional bilateral lower lobe dependent consolidation as well as bilateral lung patchy opacity in the perihilar regions, all suspicious for bilateral pneumonitis versus less likely pulmonary edema. Mass lesion in the right hilum cannot be completely excluded but limited evaluation without IV contrast. Gallbladder Sono 05/08 IMPRESSION: NO ACUTE SONOGRAPHIC PATHOLOGY OF THE VISUALIZED PORTION OF THE ABDOMEN. TTE 05/08 Conclusions There is normal left ventricular systolic function. The estimated ejection fraction is 55-60%. Global left ventricular wall motion and contractility are within normal limits. The left ventricular chamber size is decreased. The left atrium is moderately dilated. The right ventricle is mildly dilated. The right ventricular global systolic function is moderately reduced. There is mild to moderate tricuspid regurgitation. There is evidence of moderate pulmonary hypertension. There is no prior echocardiogram available to compare with at this time. CXR 05/13 1. THERE HAS BEEN PROGRESSION OF RIGHT UPPER LOBE CONSOLIDATION. 2. THERE HAS BEEN IMPROVED AERATION OF THE RIGHT LOWER LUNG. 3. THERE IS PATCHY AIRSPACE DISEASE OF THE LEFT LOWER LUNG WHICH MAY REPRESENT ATELECTASIS VERSUS EARLY CONSOLIDATION. Impression: 72F with htn, copd, aaa repair, IJ DVT presents with legionella pneumonia on HFNC. Plan: Neuro - mentating well CV - htn, afib - currently in sinus - bblocker for rate control - lisinopril for htn - tte wnl Pulm - hypoxic respiratory failure, copd - 2/2 legionella pna and mucus plugging - c/w hfnc - nebulizers q4h and prn - mucomyst - taper steroids - chest pt - nt suctioning as tolerated - if status becomes worse will discuss intubation and bronchoscopy ID - legionella pna - worsening infiltrate on cxr - start levaquin - complete course of vanc/aztreonam - c/u cultures GI - diet as tolerated Renal - monitor i/o - monitor lytes Heme - IJ DVT - ac with coumadin Endo - check fs, niss Lines - piv PPx - gi/dvt DNR/DNI Critical Care Time: 50 mins
[2018-05-14] MEDS: Levofloxacin 750 MG IVPREMIX(* 750 MG/150 ML BAG IVPB SCH (09:45)
[2018-05-14] MEDS ORDERED: Albuterol/Ipratropium NEB.SOL* Albuterol 2.5 MG/Ipratropium 0.5 MG 3 ML INH SCH (11:00)
[2018-05-14] MEDS: Aztreonam (*) 1 GM in NS 0.9% 50 ML* 50 ML IVPB SCH ×2 (12:30→22:56)
[2018-05-14] MEDS: Nystatin SUSPENSION* 100000 UNITS/ML 5 ML UDC PO SCH ×3 (14:31→20:44)
[2018-05-14] MEDS: Vancomycin(*) 750 MG in NS 0.9% 250 ML* 250 ML IVPB SCH (16:46)
[2018-05-14] MEDS ORDERED: Albuterol 2.5 MG/3 ML NEB.SOL* (0.083%) INH ONE (19:28)
[2018-05-15] MEDS: Albuterol/Ipratropium NEB.SOL* Albuterol 2.5 MG/Ipratropium 0.5 MG 3 ML INH SCH ×5 (01:24→19:42)
[2018-05-15] MEDS: Acetylcysteine INHALATION SOL* 200 MG/ML NEB.SOLN 10 ML INH SCH ×5 (01:24→19:43)
[2018-05-15] MEDS: methylPREDNISolone SOD 40 MG* 1 ML VIAL IV SCH (02:35)
[2018-05-15 06:10] LABS: EGFR Non-African American 65.6 (>60)
[2018-05-15 06:28] LABS: Hematocrit 32 % (35-47); Hemoglobin 10.7 g/dl (12.0-16.0); Mean Corpuscular HGB Conc 33 g/dl (31-36); Mean Corpuscular Hemoglobin 30 pg (27-31); Mean Corpuscular Volume 91 fL (80-97); Mean Platelet Volume 7.9 fL (7.4-10.4); Platelet Count 236 10^3/ul (150-450); Red Blood Count 3.55 10^6/ul (4.00-5.40); Red Cell Distribution Width 16 % (10.5-15); White Blood Count 22.2 10^3/ul (3.5-10.8)
[2018-05-15 06:30] LABS: Monocytes % 3 % (0-7)
[2018-05-15 06:32] LABS: ABS Neutrophils 19.8 10^3/ul (1.5-7.7)
[2018-05-15] MEDS: Nystatin SUSPENSION* 100000 UNITS/ML 5 ML UDC PO SCH ×4 (08:11→22:03)
[2018-05-15] MEDS: Levofloxacin 750 MG IVPREMIX(* 750 MG/150 ML BAG IVPB SCH (08:11)
[2018-05-15] MEDS: Docusate CAP* 100 MG PO SCH ×2 (08:12→21:02)
[2018-05-15] MEDS: Famotidine TAB* 20 MG PO SCH (08:12)
[2018-05-15] MEDS: Lisinopril TAB* 5 MG PO SCH (08:12)
[2018-05-15] MEDS: Insulin LISPRO* 1 UNITS UNIT SUBCUT SCH ×4 (08:54→21:51)
--- NOTE | 2018-05-15 09:22 | PN ---
Date of Service: 05/15/18 Critical Care Services: 72F with htn, copd, aaa repair, IJ DVT presents with legionella pneumonia on HFNC. 05/14: Appears comfortable. Still on 100% fio2. 05/15: Remains on 100% FiO2. NT suctioning without significant imrprovement. Vital Signs: Temp Pulse Resp BP SpO2 FiO2 98.2 F 97 16 136/62 96 100 05/15/18 08:01 05/15/18 08:01 05/15/18 08:01 05/15/18 08:00 05/15/18 08:01 05/15 07:25 Physical Exam: Gen - nad heent - ncat, eomi, perrl neck - no jvd cv - s1/s2, no murmur lungs - +ronchi r > l abd - soft, nt ext - no cce neuro - non-focal Fluid Balance (Past 24 Hours): I= O= Net Intake & Output 05/13/18 05/14/18 05/15/18 05/16/18 06:59 06:59 06:59 06:59 Intake Total 2046 1079 1118.5 Output Total 1800 2074 2054 100 Balance 246 -996 -936.5 -100 Weight 84.5 kg 86.1 kg 87.3 kg Intake: IV Fluids 675 88 457.5 Azithromycin 250 250 Aztreonam 50 NS (0.9%) 175 88 157.5 Vancomycin 250 IVPB 61 343 331 Azithromycin 280 Aztreonam 61 63 66 Vancomycin 265 Oral 1310 648 330 Output: Urine 500 100 Bone 1800 2075 1555 Straight Cath 0 Labs: Laboratory Results - last 24 hr 05/14/18 05/14/18 05/14/18 12:34 16:51 20:36 WBC RBC Hgb Hct MCV MCH MCHC RDW Plt Count MPV Immature Gran % Neutrophils % Band Neutrophils % Lymphocytes % Monocytes % Abs Neuts (Manual) Abs Lymphs (Manual) Abs Monocytes (Manual) Normal RBC Morphology Anisocytosis Sodium Potassium Chloride Carbon Dioxide Anion Gap BUN Creatinine Est GFR ( Amer) Est GFR (Non-Af Amer) BUN/Creatinine Ratio Glucose POC Glucose (mg/dL) 218 H 163 H 212 H Calcium Magnesium 05/15/18 05/15/18 05/15/18 05:30 05:30 06:30 WBC 22.2 H RBC 3.55 L Hgb 10.7 L Hct 32 L MCV 91 MCH 30 MCHC 33 RDW 16 H Plt Count 236 MPV 7.9 Immature Gran % 1 Neutrophils % 88 H Band Neutrophils % 1 Lymphocytes % 8 L Monocytes % 3 Abs Neuts (Manual) 19.8 H Abs Lymphs (Manual) 1.8 Abs Monocytes (Manual) 0.7 Normal RBC Morphology Not Reportable Anisocytosis 1+ Sodium 135 Potassium TNP 4.1 Chloride 101 Carbon Dioxide 29 Anion Gap 5 BUN 30 H Creatinine 0.85 Est GFR ( Amer) 79.3 Est GFR (Non-Af Amer) 65.6 BUN/Creatinine Ratio 35.3 H Glucose 147 H POC Glucose (mg/dL) Calcium 8.1 L Magnesium Cancelled 1.9 05/15/18 08:11 WBC RBC Hgb Hct MCV MCH MCHC RDW Plt Count MPV Immature Gran % Neutrophils % Band Neutrophils % Lymphocytes % Monocytes % Abs Neuts (Manual) Abs Lymphs (Manual) Abs Monocytes (Manual) Normal RBC Morphology Anisocytosis Sodium Potassium Chloride Carbon Dioxide Anion Gap BUN Creatinine Est GFR ( Amer) Est GFR (Non-Af Amer) BUN/Creatinine Ratio Glucose POC Glucose (mg/dL) 186 H Calcium Magnesium Studies: CXR 05/08 IMPRESSION: RIGHT UPPER LOBAR INFILTRATE, UNCHANGED. CT Chest 05/08 IMPRESSION: 1. There is mediastinal lymphadenopathy. 2. There is consolidation involving most of the right upper lobe with some minimal air bronchograms present and there is additional bilateral lower lobe dependent consolidation as well as bilateral lung patchy opacity in the perihilar regions, all suspicious for bilateral pneumonitis versus less likely pulmonary edema. Mass lesion in the right hilum cannot be completely excluded but limited evaluation without IV contrast. Gallbladder Sono 05/08 IMPRESSION: NO ACUTE SONOGRAPHIC PATHOLOGY OF THE VISUALIZED PORTION OF THE ABDOMEN. TTE 05/08 Conclusions There is normal left ventricular systolic function. The estimated ejection fraction is 55-60%. Global left ventricular wall motion and contractility are within normal limits. The left ventricular chamber size is decreased. The left atrium is moderately dilated. The right ventricle is mildly dilated. The right ventricular global systolic function is moderately reduced. There is mild to moderate tricuspid regurgitation. There is evidence of moderate pulmonary hypertension. There is no prior echocardiogram available to compare with at this time. CXR 05/13 1. THERE HAS BEEN PROGRESSION OF RIGHT UPPER LOBE CONSOLIDATION. 2. THERE HAS BEEN IMPROVED AERATION OF THE RIGHT LOWER LUNG. 3. THERE IS PATCHY AIRSPACE DISEASE OF THE LEFT LOWER LUNG WHICH MAY REPRESENT ATELECTASIS VERSUS EARLY CONSOLIDATION. Impression: 72F with htn, copd, aaa repair, IJ DVT presents with legionella pneumonia on HFNC. Plan: Neuro - mentating well CV - htn, afib - currently in sinus - bblocker for rate control - lisinopril for htn - tte wnl Pulm - hypoxic respiratory failure, copd - 2/2 legionella pna and mucus plugging - c/w hfnc - nebulizers q4h and prn - mucomyst - taper steroids - chest pt - nt suctioning as tolerated - if status becomes worse will discuss intubation and bronchoscopy ID - legionella pna - worsening infiltrate on cxr - start levaquin - complete course of vanc/aztreonam - c/u cultures GI - diet as tolerated Renal - monitor i/o - monitor lytes Heme - IJ DVT - ac with coumadin Endo - check fs, niss Lines - piv PPx - gi/dvt DNR/DNI Critical Care Time: 40 mins
[2018-05-15] MEDS: Acetaminophen TAB* 325 MG PO PRN (10:48)
[2018-05-15] MEDS ORDERED: Polyethylene Glycol 3350* 17 GM PACKET PO PRN (11:26)
[2018-05-15] MEDS ORDERED: Bisacodyl SUPP* 10 MG SUPP PR ONE (11:27)
[2018-05-15 11:41] LABS: INR 6.23 (0.77-1.02)
[2018-05-16] MEDS: Acetylcysteine INHALATION SOL* 200 MG/ML NEB.SOLN 10 ML INH SCH ×4 (00:20→19:54)
[2018-05-16] MEDS: Albuterol/Ipratropium NEB.SOL* Albuterol 2.5 MG/Ipratropium 0.5 MG 3 ML INH SCH ×4 (00:20→19:54)
[2018-05-16 05:38] LABS: Hematocrit 29 % (35-47); Hemoglobin 9.5 g/dl (12.0-16.0); Mean Corpuscular HGB Conc 33 g/dl (31-36); Mean Corpuscular Hemoglobin 30 pg (27-31); Mean Corpuscular Volume 91 fL (80-97); Mean Platelet Volume 7.8 fL (7.4-10.4); Platelet Count 200 10^3/ul (150-450); Red Blood Count 3.17 10^6/ul (4.00-5.40); Red Cell Distribution Width 15 % (10.5-15)
[2018-05-16 05:52] LABS: EGFR Non-African American 67.4 (>60)
[2018-05-16 05:56] LABS: INR 5.58 (0.77-1.02)
[2018-05-16 06:08] LABS: Monocytes % 1 % (0-7)
[2018-05-16] MEDS: Insulin LISPRO* 1 UNITS UNIT SUBCUT SCH ×4 (08:14→21:05)
[2018-05-16] MEDS: Levofloxacin 750 MG IVPREMIX(* 750 MG/150 ML BAG IVPB SCH (08:14)
[2018-05-16] MEDS ORDERED: Potassium Chlor TAB* 20 MEQ TAB.ER PO ONE (09:13)
[2018-05-16] MEDS ORDERED: Magnesium Sulfate 1 GM IV* 1 GM/100 ML BAG IV ONE (09:13)
--- NOTE | 2018-05-16 09:17 | PN ---
Date of Service: 05/16/18 Critical Care Services: 72F with htn, copd, aaa repair, IJ DVT presents with legionella pneumonia on HFNC. 05/14: Appears comfortable. Still on 100% fio2. 05/15: Remains on 100% FiO2. NT suctioning without significant imrprovement. 05/16: was down to 60% fio2 when up in chair yesterday. back to 90% when in bed. Vital Signs: Temp Pulse Resp BP SpO2 FiO2 99.0 F 100 17 126/57 92 90 05/16/18 06:00 05/16/18 07:28 05/16/18 07:28 05/16/18 06:00 05/16/18 07:28 05/16 07:28 Physical Exam: Gen - nad heent - ncat, eomi, perrl neck - no jvd cv - s1/s2, no murmur lungs - +ronchi r > l abd - soft, nt ext - no cce neuro - non-focal Fluid Balance (Past 24 Hours): I= O= Net Intake & Output 05/14/18 05/15/18 05/16/18 05/17/18 06:59 06:59 06:59 06:59 Intake Total 1079 1118.5 923.3 Output Total 20745 2250 Balance -996 -936.5 -1326.7 Weight 86.1 kg 87.3 kg 83 kg Intake: IV Fluids 88 457.5 33.3 Azithromycin 250 Aztreonam 50 NS (0.9%) 88 157.5 33.3 IVPB 343 331 Azithromycin 280 Aztreonam 63 66 Vancomycin 265 Medicated IV 150 levofloxacin 150 Oral 648 330 740 Output: Urine 500 100 Bone 2075 1555 2150 Straight Cath 0 Other: Date of Last Bowel 05/15/18 Movement # Bowel Movements 1 Estimated Stool Amount Small Labs: Laboratory Results - last 24 hr 05/15/18 05/15/18 05/15/18 05:30 11:00 12:25 WBC RBC Hgb Hct MCV MCH MCHC RDW Plt Count MPV Neut % (Auto) Lymph % (Auto) Harris % (Auto) Eos % (Auto) Baso % (Auto) Absolute Neuts (auto) Absolute Lymphs (auto) Absolute Monos (auto) Absolute Eos (auto) Absolute Basos (auto) Absolute Nucleated RBC Immature Gran % Neutrophils % Lymphocytes % Monocytes % Metamyelocytes % Myelocytes % Nucleated RBC % Normal RBC Morphology Hem Pathologist Commnt INR (Anticoag Therapy) 6.23 H* Sodium Potassium Chloride Carbon Dioxide Anion Gap BUN Creatinine Est GFR ( Amer) Est GFR (Non-Af Amer) BUN/Creatinine Ratio Glucose POC Glucose (mg/dL) 200 H Calcium Magnesium 05/15/18 05/15/18 05/16/18 16:41 21:50 05:20 WBC RBC Hgb Hct MCV MCH MCHC RDW Plt Count MPV Neut % (Auto) Lymph % (Auto) Harris % (Auto) Eos % (Auto) Baso % (Auto) Absolute Neuts (auto) Absolute Lymphs (auto) Absolute Monos (auto) Absolute Eos (auto) Absolute Basos (auto) Absolute Nucleated RBC Immature Gran % Neutrophils % Lymphocytes % Monocytes % Metamyelocytes % Myelocytes % Nucleated RBC % Normal RBC Morphology Hem Pathologist Commnt INR (Anticoag Therapy) Sodium 134 L Potassium 3.7 Chloride 102 Carbon Dioxide 27 Anion Gap 5 BUN 26 H Creatinine 0.83 Est GFR ( Amer) 81.5 Est GFR (Non-Af Amer) 67.4 BUN/Creatinine Ratio 31.3 H Glucose 142 H POC Glucose (mg/dL) 154 H 134 H Calcium 7.8 L Magnesium 1.7 L 05/16/18 05/16/18 05:20 05:20 WBC 19.0 H RBC 3.17 L Hgb 9.5 L Hct 29 L MCV 91 MCH 30 MCHC 33 RDW 15 Plt Count 200 MPV 7.8 Neut % (Auto) Not Reportable Lymph % (Auto) Not Reportable Harris % (Auto) Not Reportable Eos % (Auto) Not Reportable Baso % (Auto) Not Reportable Absolute Neuts (auto) Not Reportable Absolute Lymphs (auto) Not Reportable Absolute Monos (auto) Not Reportable Absolute Eos (auto) Not Reportable Absolute Basos (auto) Not Reportable Absolute Nucleated RBC Not Reportable Immature Gran % 2 Neutrophils % 89 H Lymphocytes % 8 L Monocytes % 1 Metamyelocytes % 1 Myelocytes % 1 Nucleated RBC % Not Reportable Normal RBC Morphology Normal Hem Pathologist Commnt INR (Anticoag Therapy) 5.58 H* Sodium Potassium Chloride Carbon Dioxide Anion Gap BUN Creatinine Est GFR ( Amer) Est GFR (Non-Af Amer) BUN/Creatinine Ratio Glucose POC Glucose (mg/dL) Calcium Magnesium Studies: CXR 05/08 IMPRESSION: RIGHT UPPER LOBAR INFILTRATE, UNCHANGED. CT Chest 05/08 IMPRESSION: 1. There is mediastinal lymphadenopathy. 2. There is consolidation involving most of the right upper lobe with some minimal air bronchograms present and there is additional bilateral lower lobe dependent consolidation as well as bilateral lung patchy opacity in the perihilar regions, all suspicious for bilateral pneumonitis versus less likely pulmonary edema. Mass lesion in the right hilum cannot be completely excluded but limited evaluation without IV contrast. Gallbladder Sono 05/08 IMPRESSION: NO ACUTE SONOGRAPHIC PATHOLOGY OF THE VISUALIZED PORTION OF THE ABDOMEN. TTE 05/08 Conclusions There is normal left ventricular systolic function. The estimated ejection fraction is 55-60%. Global left ventricular wall motion and contractility are within normal limits. The left ventricular chamber size is decreased. The left atrium is moderately dilated. The right ventricle is mildly dilated. The right ventricular global systolic function is moderately reduced. There is mild to moderate tricuspid regurgitation. There is evidence of moderate pulmonary hypertension. There is no prior echocardiogram available to compare with at this time. CXR 05/13 1. THERE HAS BEEN PROGRESSION OF RIGHT UPPER LOBE CONSOLIDATION. 2. THERE HAS BEEN IMPROVED AERATION OF THE RIGHT LOWER LUNG. 3. THERE IS PATCHY AIRSPACE DISEASE OF THE LEFT LOWER LUNG WHICH MAY REPRESENT ATELECTASIS VERSUS EARLY CONSOLIDATION. Impression: 72F with htn, copd, aaa repair, IJ DVT presents with legionella pneumonia on HFNC. Plan: Neuro - mentating well CV - htn, afib - currently in sinus - bblocker for rate control - lisinopril for htn - tte wnl Pulm - hypoxic respiratory failure, copd - 2/2 legionella pna and mucus plugging - c/w hfnc - nebulizers q4h and prn - mucomyst - taper steroids - chest pt - nt suctioning as tolerated - if status becomes worse will discuss intubation and bronchoscopy ID - legionella pna - worsening infiltrate on cxr - start levaquin - complete course of vanc/aztreonam - c/u cultures GI - diet as tolerated Renal - monitor i/o - monitor lytes Heme - IJ DVT - ac with coumadin Endo - check fs, niss Lines - piv PPx - gi/dvt DNR/DNI Critical Care Time: 45 mins
[2018-05-16] MEDS: Famotidine TAB* 20 MG PO SCH (09:24)
[2018-05-16] MEDS: Lisinopril TAB* 5 MG PO SCH (09:25)
[2018-05-16] MEDS: methylPREDNISolone SOD 40 MG* 1 ML VIAL IV SCH (09:25)
[2018-05-16] MEDS: Docusate CAP* 100 MG PO SCH ×2 (09:26→21:05)
[2018-05-16] MEDS: Nystatin SUSPENSION* 100000 UNITS/ML 5 ML UDC PO SCH ×5 (09:30→21:05)
[2018-05-16] MEDS ORDERED: Vancomycin Trough Check NOTE FOLLOW UP ONE (17:00)
[2018-05-17] MEDS: Albuterol/Ipratropium NEB.SOL* Albuterol 2.5 MG/Ipratropium 0.5 MG 3 ML INH SCH ×4 (01:41→19:23)
[2018-05-17] MEDS: Acetylcysteine INHALATION SOL* 200 MG/ML NEB.SOLN 10 ML INH SCH ×4 (01:41→19:23)
[2018-05-17 05:00] LABS: INR 3.9 (0.77-1.02)
[2018-05-17] MEDS: methylPREDNISolone SOD 40 MG* 1 ML VIAL IV SCH (08:25)
[2018-05-17] MEDS: Levofloxacin 750 MG IVPREMIX(* 750 MG/150 ML BAG IVPB SCH (08:26)
--- NOTE | 2018-05-17 08:36 | PN ---
Date of Service: 05/17/18 Critical Care Services: 72F with htn, copd, aaa repair, IJ DVT presents with legionella pneumonia on HFNC. 05/14: Appears comfortable. Still on 100% fio2. 05/15: Remains on 100% FiO2. NT suctioning without significant imrprovement. 05/16: was down to 60% fio2 when up in chair yesterday. back to 90% when in bed. 05/17: CXR this am improved although remains hypoxic. Vital Signs: Temp Pulse Resp BP SpO2 FiO2 98.8 F 107 19 113/57 96 90 05/17/18 06:01 05/17/18 06:01 05/17/18 06:01 05/17/18 06:00 05/17/18 06:01 05/17 03:47 Physical Exam: Gen - nad heent - ncat, eomi, perrl neck - no jvd cv - s1/s2, no murmur lungs - +ronchi r > l abd - soft, nt ext - no cce neuro - non-focal Fluid Balance (Past 24 Hours): I= O= Net Intake & Output 05/15/18 05/16/18 05/17/18 05/18/18 06:59 06:59 06:59 06:59 Intake Total 1118.5 923.3 2047 Output Total 2055 2250 3215 Balance -936.5 -1326.7 -1168 Weight 87.3 kg 83 kg 82.3 kg Intake: IV Fluids 457.5 33.3 Azithromycin 250 Aztreonam 50 NS (0.9%) 157.5 33.3 IVPB 331 312 Aztreonam 66 NS (0.9%) 312 Vancomycin 265 Medicated IV 150 levofloxacin 150 Oral 225 536 7035 Output: Urine 500 100 Bone 1555 2150 3215 Other: Date of Last Bowel 05/15/18 Movement # Bowel Movements 1 Estimated Stool Amount Small Large Large Labs: Laboratory Results - last 24 hr 05/16/18 05/16/18 05/16/18 12:39 16:55 20:57 INR (Anticoag Therapy) POC Glucose (mg/dL) 234 H 241 H 153 H 05/17/18 04:40 INR (Anticoag Therapy) 3.90 H POC Glucose (mg/dL) Studies: CXR 05/08 IMPRESSION: RIGHT UPPER LOBAR INFILTRATE, UNCHANGED. CT Chest 05/08 IMPRESSION: 1. There is mediastinal lymphadenopathy. 2. There is consolidation involving most of the right upper lobe with some minimal air bronchograms present and there is additional bilateral lower lobe dependent consolidation as well as bilateral lung patchy opacity in the perihilar regions, all suspicious for bilateral pneumonitis versus less likely pulmonary edema. Mass lesion in the right hilum cannot be completely excluded but limited evaluation without IV contrast. Gallbladder Sono 05/08 IMPRESSION: NO ACUTE SONOGRAPHIC PATHOLOGY OF THE VISUALIZED PORTION OF THE ABDOMEN. TTE 05/08 Conclusions There is normal left ventricular systolic function. The estimated ejection fraction is 55-60%. Global left ventricular wall motion and contractility are within normal limits. The left ventricular chamber size is decreased. The left atrium is moderately dilated. The right ventricle is mildly dilated. The right ventricular global systolic function is moderately reduced. There is mild to moderate tricuspid regurgitation. There is evidence of moderate pulmonary hypertension. There is no prior echocardiogram available to compare with at this time. CXR 05/13 1. THERE HAS BEEN PROGRESSION OF RIGHT UPPER LOBE CONSOLIDATION. 2. THERE HAS BEEN IMPROVED AERATION OF THE RIGHT LOWER LUNG. 3. THERE IS PATCHY AIRSPACE DISEASE OF THE LEFT LOWER LUNG WHICH MAY REPRESENT ATELECTASIS VERSUS EARLY CONSOLIDATION. Impression: 72F with htn, copd, aaa repair, IJ DVT presents with legionella pneumonia on HFNC. Plan: Neuro - mentating well CV - htn, afib - currently in sinus - bblocker for rate control - lisinopril for htn - tte wnl Pulm - hypoxic respiratory failure, copd - 2/2 legionella pna and mucus plugging - c/w hfnc - nebulizers q4h and prn - mucomyst - taper steroids - chest pt - nt suctioning as tolerated - cxr improved this am ID - legionella pna - levaquin - complete course of vanc/aztreonam - f/u cultures GI - diet as tolerated Renal - monitor i/o - monitor lytes Heme - IJ DVT - ac with coumadin Endo - check fs, niss Lines - piv PPx - gi/dvt DNR/DNI Critical Care Time: 40 mins
[2018-05-17] MEDS: Famotidine TAB* 20 MG PO SCH (09:29)
[2018-05-17] MEDS: Insulin LISPRO* 1 UNITS UNIT SUBCUT SCH ×4 (09:29→21:30)
[2018-05-17] MEDS: Lisinopril TAB* 5 MG PO SCH (09:29)
[2018-05-17] MEDS: Docusate CAP* 100 MG PO SCH ×2 (09:30→21:01)
[2018-05-17] MEDS: Nystatin SUSPENSION* 100000 UNITS/ML 5 ML UDC PO SCH ×4 (09:30→21:33)
[2018-05-17] MEDS: Morphine VIAL* 4 MG/ML VIAL (1 ml vial) IV PRN (21:35)
[2018-05-18] MEDS: Albuterol/Ipratropium NEB.SOL* Albuterol 2.5 MG/Ipratropium 0.5 MG 3 ML INH SCH ×4 (01:11→20:19)
[2018-05-18] MEDS: Acetylcysteine INHALATION SOL* 200 MG/ML NEB.SOLN 10 ML INH SCH ×4 (01:11→20:20)
[2018-05-18 06:04] LABS: INR 2.57 (0.77-1.02)
[2018-05-18] MEDS: Famotidine TAB* 20 MG PO SCH (07:51)
[2018-05-18] MEDS: Insulin LISPRO* 1 UNITS UNIT SUBCUT SCH ×4 (07:51→20:44)
[2018-05-18] MEDS: Lisinopril TAB* 5 MG PO SCH (07:51)
[2018-05-18] MEDS: Docusate CAP* 100 MG PO SCH ×2 (07:59→20:36)
[2018-05-18] MEDS: Nystatin SUSPENSION* 100000 UNITS/ML 5 ML UDC PO SCH ×4 (08:04→20:44)
[2018-05-18] MEDS: Levofloxacin 750 MG IVPREMIX(* 750 MG/150 ML BAG IVPB SCH (08:19)
--- NOTE | 2018-05-18 08:51 | PN ---
Date of Service: 05/18/18 Critical Care Services: 72F with htn, copd, aaa repair, IJ DVT presents with legionella pneumonia on HFNC. 05/14: Appears comfortable. Still on 100% fio2. 05/15: Remains on 100% FiO2. NT suctioning without significant imrprovement. 05/16: was down to 60% fio2 when up in chair yesterday. back to 90% when in bed. 05/17: CXR this am improved although remains hypoxic. 05/18: oxygen requirements decreasing Vital Signs: Temp Pulse Resp BP SpO2 FiO2 98 F 102 100 123/61 95 60 05/18/18 07:42 05/18/18 08:05 05/18/18 08:05 05/18/18 08:00 05/18/18 08:05 05/18 08:05 Physical Exam: Gen - nad heent - ncat, eomi, perrl neck - no jvd cv - s1/s2, no murmur lungs - +ronchi r > l abd - soft, nt ext - no cce neuro - non-focal Fluid Balance (Past 24 Hours): I= O= Net Intake & Output 05/16/18 05/17/18 05/18/18 05/19/18 06:59 06:59 06:59 06:59 Intake Total 923.3 2047 1645 0 Output Total 2250 3215 3640 230 Balance -1326.7 -1168 -1994 -230 Weight 83 kg 82.3 kg Intake: IV Fluids 33.3 NS (0.9%) 33.3 IVPB 312 165 NS (0.9%) 312 165 Medicated IV 150 levofloxacin 150 Oral 740 1735 1480 0 Output: Urine 100 1150 Bone 2150 3215 2490 230 Other: Date of Last Bowel 05/15/18 Movement # Bowel Movements 1 Estimated Stool Amount Small Large Small Labs: Laboratory Results - last 24 hr 05/17/18 05/17/18 05/17/18 08:37 13:00 17:35 INR (Anticoag Therapy) POC Glucose (mg/dL) 171 H 233 H 179 H 05/17/18 05/18/18 05/18/18 21:20 05:46 07:30 INR (Anticoag Therapy) 2.57 H POC Glucose (mg/dL) 179 H 151 H Studies: CXR 05/08 IMPRESSION: RIGHT UPPER LOBAR INFILTRATE, UNCHANGED. CT Chest 05/08 IMPRESSION: 1. There is mediastinal lymphadenopathy. 2. There is consolidation involving most of the right upper lobe with some minimal air bronchograms present and there is additional bilateral lower lobe dependent consolidation as well as bilateral lung patchy opacity in the perihilar regions, all suspicious for bilateral pneumonitis versus less likely pulmonary edema. Mass lesion in the right hilum cannot be completely excluded but limited evaluation without IV contrast. Gallbladder Sono 05/08 IMPRESSION: NO ACUTE SONOGRAPHIC PATHOLOGY OF THE VISUALIZED PORTION OF THE ABDOMEN. TTE 05/08 Conclusions There is normal left ventricular systolic function. The estimated ejection fraction is 55-60%. Global left ventricular wall motion and contractility are within normal limits. The left ventricular chamber size is decreased. The left atrium is moderately dilated. The right ventricle is mildly dilated. The right ventricular global systolic function is moderately reduced. There is mild to moderate tricuspid regurgitation. There is evidence of moderate pulmonary hypertension. There is no prior echocardiogram available to compare with at this time. CXR 05/13 1. THERE HAS BEEN PROGRESSION OF RIGHT UPPER LOBE CONSOLIDATION. 2. THERE HAS BEEN IMPROVED AERATION OF THE RIGHT LOWER LUNG. 3. THERE IS PATCHY AIRSPACE DISEASE OF THE LEFT LOWER LUNG WHICH MAY REPRESENT ATELECTASIS VERSUS EARLY CONSOLIDATION. Impression: 72F with htn, copd, aaa repair, IJ DVT presents with legionella pneumonia on HFNC. Plan: Neuro - mentating well CV - htn, afib - currently in sinus - bblocker for rate control - lisinopril for htn - tte wnl Pulm - hypoxic respiratory failure, copd - 2/2 legionella pna and mucus plugging - c/w hfnc - nebulizers q4h and prn - mucomyst - taper steroids - chest pt ID - legionella pna - levaquin for 21 days - completed course of vanc/aztreonam - f/u cultures GI - diet as tolerated Renal - monitor i/o - monitor lytes Heme - IJ DVT - ac with coumadin Endo - check fs, niss Lines - piv PPx - gi/dvt DNR/DNI Critical Care Time: 40 mins
[2018-05-18] MEDS ORDERED: Warfarin TAB(*) 1 MG PO ONE (17:00)
[2018-05-19] MEDS: Albuterol/Ipratropium NEB.SOL* Albuterol 2.5 MG/Ipratropium 0.5 MG 3 ML INH SCH ×4 (01:17→19:57)
[2018-05-19] MEDS: Acetylcysteine INHALATION SOL* 200 MG/ML NEB.SOLN 10 ML INH SCH ×4 (01:17→19:57)
[2018-05-19 06:19] LABS: Hematocrit 24 % (35-47); Mean Corpuscular HGB Conc 33 g/dl (31-36); Mean Corpuscular Hemoglobin 30 pg (27-31); Mean Corpuscular Volume 92 fL (80-97); Mean Platelet Volume 7.6 fL (7.4-10.4); Platelet Count 192 10^3/ul (150-450); Red Blood Count 2.62 10^6/ul (4.00-5.40); Red Cell Distribution Width 15 % (10.5-15); White Blood Count 10.1 10^3/ul (3.5-10.8)
[2018-05-19 06:27] LABS: INR 2.08 (0.77-1.02)
[2018-05-19 06:40] LABS: EGFR Non-African American 59.1 (>60)
[2018-05-19 06:43] LABS: ABS Basophils 0 10^3/ul (0-0.2); ABS Eosinophils 0.1 10^3/ul (0-0.6); ABS Lymphocytes 0.9 10^3/ul (1.0-4.8); ABS Monocytes 0.5 10^3/ul (0-0.8); ABS Neutrophils 8.5 10^3/ul (1.5-7.7); ABS Nucleated RBC 0 10^3/ul; Eosinophil % 0.7 % (0-6); Lymphocyte % 9.2 % (25-47); Nucleated Red Blood Cells % 0
--- NOTE | 2018-05-19 08:42 | PN ---
Date of Service: 05/19/18 Critical Care Services: 72F with htn, copd, aaa repair, IJ DVT presents with legionella pneumonia on HFNC. 05/14: Appears comfortable. Still on 100% fio2. 05/15: Remains on 100% FiO2. NT suctioning without significant imrprovement. 05/16: was down to 60% fio2 when up in chair yesterday. back to 90% when in bed. 05/17: CXR this am improved although remains hypoxic. 05/18: oxygen requirements decreasing 05/19: Off HFNC. Hgb slowly trending down. Vital Signs: Temp Pulse Resp BP SpO2 FiO2 98.6 F 92 24 126/57 94 60 05/19/18 07:00 05/19/18 07:36 05/19/18 07:36 05/19/18 07:00 05/19/18 07:36 05/18 12:00 Physical Exam: Gen - nad heent - ncat, eomi, perrl neck - no jvd cv - s1/s2, no murmur lungs - cta, improved bs abd - soft, nt ext - no cce neuro - non-focal Fluid Balance (Past 24 Hours): I= O= Net Intake & Output 05/17/18 05/18/18 05/19/18 05/20/18 06:59 06:59 06:59 06:59 Intake Total 2047 1645 1913 Output Total 3215 3640 3330 Balance -1167 Weight 82.3 kg 77.5 kg Intake: IV Fluids 663 ABX - LEVOFLOXACIN 13 LR 500 NS (0.9%) 150 IVPB 312 165 150 ABX - LEVOFLOXACIN 150 NS (0.9%) 312 165 Oral 1735 1480 1100 Output: Urine 1150 Bone 3215 2490 3330 Other: Estimated Stool Amount Large Small Labs: Laboratory Results - last 24 hr 05/18/18 05/18/18 05/18/18 11:50 17:18 20:35 WBC RBC Hgb Hct MCV MCH MCHC RDW Plt Count MPV Neut % (Auto) Lymph % (Auto) [place] % (Auto) Eos % (Auto) Baso % (Auto) Absolute Neuts (auto) Absolute Lymphs (auto) Absolute Monos (auto) Absolute Eos (auto) Absolute Basos (auto) Absolute Nucleated RBC Nucleated RBC % INR (Anticoag Therapy) Sodium Potassium Chloride Carbon Dioxide Anion Gap BUN Creatinine Est GFR ( Amer) Est GFR (Non-Af Amer) BUN/Creatinine Ratio Glucose POC Glucose (mg/dL) 206 H 123 H 179 H Calcium Magnesium 05/19/18 05/19/18 05/19/18 06:00 06:00 06:00 WBC 10.1 RBC 2.62 L Hgb 8.0 L Hct 24 L MCV 92 MCH 30 MCHC 33 RDW 15 Plt Count 192 MPV 7.6 Neut % (Auto) 84.5 H Lymph % (Auto) 9.2 L [place] % (Auto) 5.2 Eos % (Auto) 0.7 Baso % (Auto) 0.4 Absolute Neuts (auto) 8.5 H Absolute Lymphs (auto) 0.9 L Absolute Monos (auto) 0.5 Absolute Eos (auto) 0.1 Absolute Basos (auto) 0 Absolute Nucleated RBC 0 Nucleated RBC % 0 INR (Anticoag Therapy) 2.08 H Sodium 136 Potassium 4.0 Chloride 103 Carbon Dioxide 28 Anion Gap 5 BUN 18 Creatinine 0.93 Est GFR ( Amer) 71.5 Est GFR (Non-Af Amer) 59.1 BUN/Creatinine Ratio 19.4 Glucose 118 H POC Glucose (mg/dL) Calcium 7.8 L Magnesium 1.7 L Studies: CXR 05/08 IMPRESSION: RIGHT UPPER LOBAR INFILTRATE, UNCHANGED. CT Chest 05/08 IMPRESSION: 1. There is mediastinal lymphadenopathy. 2. There is consolidation involving most of the right upper lobe with some minimal air bronchograms present and there is additional bilateral lower lobe dependent consolidation as well as bilateral lung patchy opacity in the perihilar regions, all suspicious for bilateral pneumonitis versus less likely pulmonary edema. Mass lesion in the right hilum cannot be completely excluded but limited evaluation without IV contrast. Gallbladder Sono 05/08 IMPRESSION: NO ACUTE SONOGRAPHIC PATHOLOGY OF THE VISUALIZED PORTION OF THE ABDOMEN. TTE 05/08 Conclusions There is normal left ventricular systolic function. The estimated ejection fraction is 55-60%. Global left ventricular wall motion and contractility are within normal limits. The left ventricular chamber size is decreased. The left atrium is moderately dilated. The right ventricle is mildly dilated. The right ventricular global systolic function is moderately reduced. There is mild to moderate tricuspid regurgitation. There is evidence of moderate pulmonary hypertension. There is no prior echocardiogram available to compare with at this time. CXR 05/13 1. THERE HAS BEEN PROGRESSION OF RIGHT UPPER LOBE CONSOLIDATION. 2. THERE HAS BEEN IMPROVED AERATION OF THE RIGHT LOWER LUNG. 3. THERE IS PATCHY AIRSPACE DISEASE OF THE LEFT LOWER LUNG WHICH MAY REPRESENT ATELECTASIS VERSUS EARLY CONSOLIDATION. Impression: 72F with htn, copd, aaa repair, IJ DVT presents with legionella pneumonia on HFNC. Plan: Neuro - mentating well CV - htn, afib - currently in sinus - lisinopril held for low bp - tte wnl Pulm - hypoxic respiratory failure, copd - 2/2 legionella pna and mucus plugging - c/w hfnc - nebulizers q4h and prn - mucomyst - taper steroids - chest pt - oxygenation improving ID - legionella pna - levaquin for 21 days - completed course of vanc/aztreonam - f/u cultures GI - diet as tolerated Renal - monitor i/o - monitor lytes Heme - IJ DVT - ac with coumadin Endo - check fs, niss Lines - piv PPx - gi/dvt DNR/DNI Critical Care Time: 40 mins
[2018-05-19] MEDS: Insulin LISPRO* 1 UNITS UNIT SUBCUT SCH ×4 (09:08→20:50)
[2018-05-19] MEDS ORDERED: Magnesium Sulfate 1 GM IV* 1 GM/100 ML BAG IV ONE (09:30)
[2018-05-19] MEDS: Levofloxacin 750 MG IVPREMIX(* 750 MG/150 ML BAG IVPB SCH (09:50)
[2018-05-19] MEDS: Nystatin SUSPENSION* 100000 UNITS/ML 5 ML UDC PO SCH ×4 (09:50→20:38)
[2018-05-19] MEDS: Famotidine TAB* 20 MG PO SCH (09:50)
[2018-05-19] MEDS: Docusate CAP* 100 MG PO SCH ×2 (09:51→20:37)
[2018-05-19] MEDS: Acetaminophen TAB* 325 MG PO PRN ×2 (09:51→20:37)
[2018-05-19] MEDS: guaiFENesin LIQ* 100 MG/5 ML UDC PO PRN (09:51)
[2018-05-19] MEDS ORDERED: Warfarin TAB(*) 1 MG PO ONE (17:00)
[2018-05-20] MEDS: Albuterol/Ipratropium NEB.SOL* Albuterol 2.5 MG/Ipratropium 0.5 MG 3 ML INH SCH ×4 (01:26→20:10)
[2018-05-20] MEDS: Acetylcysteine INHALATION SOL* 200 MG/ML NEB.SOLN 10 ML INH SCH ×2 (01:26→07:28)
[2018-05-20 06:06] LABS: EGFR Non-African American 56.3 (>60)
[2018-05-20 06:12] LABS: ABS Basophils 0 10^3/ul (0-0.2); ABS Eosinophils 0.1 10^3/ul (0-0.6); ABS Monocytes 0.5 10^3/ul (0-0.8); ABS Neutrophils 7.1 10^3/ul (1.5-7.7); ABS Nucleated RBC 0 10^3/ul; Eosinophil % 0.7 % (0-6); Hematocrit 26 % (35-47); Hemoglobin 8.4 g/dl (12.0-16.0); Mean Corpuscular HGB Conc 33 g/dl (31-36); Mean Corpuscular Hemoglobin 30 pg (27-31); Mean Corpuscular Volume 91 fL (80-97); Mean Platelet Volume 7.6 fL (7.4-10.4); Nucleated Red Blood Cells % 0; Platelet Count 201 10^3/ul (150-450); Red Cell Distribution Width 15 % (10.5-15); White Blood Count 8.6 10^3/ul (3.5-10.8)
[2018-05-20] MEDS: Insulin LISPRO* 1 UNITS UNIT SUBCUT SCH ×4 (08:29→20:28)
[2018-05-20] MEDS: Levofloxacin 750 MG IVPREMIX(* 750 MG/150 ML BAG IVPB SCH (08:29)
[2018-05-20] MEDS: Docusate CAP* 100 MG PO SCH ×2 (08:30→20:09)
--- NOTE | 2018-05-20 08:35 | PN ---
Date of Service: 05/20/18 Critical Care Services: 72F with htn, copd, aaa repair, IJ DVT presents with legionella pneumonia on HFNC. 05/14: Appears comfortable. Still on 100% fio2. 05/15: Remains on 100% FiO2. NT suctioning without significant imrprovement. 05/16: was down to 60% fio2 when up in chair yesterday. back to 90% when in bed. 05/17: CXR this am improved although remains hypoxic. 05/18: oxygen requirements decreasing 05/19: Off HFNC. Hgb slowly trending down. 05/20: down to 6LNC. hgb stable. Vital Signs: Temp Pulse Resp BP SpO2 FiO2 98.1 F 79 20 120/60 97 60 05/20/18 07:00 05/20/18 07:00 05/20/18 07:00 05/20/18 07:00 05/20/18 07:00 05/18 12:00 Physical Exam: Gen - nad heent - ncat, eomi, perrl neck - no jvd cv - s1/s2, no murmur lungs - cta, improved bs abd - soft, nt ext - no cce neuro - non-focal Fluid Balance (Past 24 Hours): I= O= Net Intake & Output 05/18/18 05/19/18 05/20/18 05/21/18 06:59 06:59 06:59 06:59 Intake Total 1645 1913 2182 Output Total 3640 3330 3850 Balance -1994 -9923 -9290 Weight 77.5 kg 75.8 kg Intake: IV Fluids 663 1026 ABX - LEVOFLOXACIN 13 LR 500 1001 NS (0.9%) 150 25 IVPB 165 150 256 ABX - LEVOFLOXACIN 150 153 Magnesium 103 NS (0.9%) 165 Oral 1480 1100 900 Output: Urine 1150 Bone 2490 3330 3850 Other: Estimated Stool Amount Small Labs: Laboratory Results - last 24 hr 05/19/18 05/19/18 05/19/18 12:13 17:20 17:23 WBC RBC Hgb Hct MCV MCH MCHC RDW Plt Count MPV Neut % (Auto) Lymph % (Auto) [place] % (Auto) Eos % (Auto) Baso % (Auto) Absolute Neuts (auto) Absolute Lymphs (auto) Absolute Monos (auto) Absolute Eos (auto) Absolute Basos (auto) Absolute Nucleated RBC Nucleated RBC % Sodium Potassium Chloride Carbon Dioxide Anion Gap BUN Creatinine Est GFR ( Amer) Est GFR (Non-Af Amer) BUN/Creatinine Ratio Glucose POC Glucose (mg/dL) 242 H 60 L 61 L Calcium Magnesium 05/19/18 05/19/18 05/20/18 18:47 20:37 05:15 WBC RBC Hgb Hct MCV MCH MCHC RDW Plt Count MPV Neut % (Auto) Lymph % (Auto) [place] % (Auto) Eos % (Auto) Baso % (Auto) Absolute Neuts (auto) Absolute Lymphs (auto) Absolute Monos (auto) Absolute Eos (auto) Absolute Basos (auto) Absolute Nucleated RBC Nucleated RBC % Sodium 138 Potassium 4.1 Chloride 106 Carbon Dioxide 29 Anion Gap 3 BUN 17 Creatinine 0.97 H Est GFR ( Amer) 68.1 Est GFR (Non-Af Amer) 56.3 BUN/Creatinine Ratio 17.5 Glucose 109 H POC Glucose (mg/dL) 167 H 175 H Calcium 8.1 L Magnesium 2.0 05/20/18 05:15 WBC 8.6 RBC 2.80 L Hgb 8.4 L Hct 26 L MCV 91 MCH 30 MCHC 33 RDW 15 Plt Count 201 MPV 7.6 Neut % (Auto) 82.4 Lymph % (Auto) 11.0 L [place] % (Auto) 5.6 Eos % (Auto) 0.7 Baso % (Auto) 0.3 Absolute Neuts (auto) 7.1 Absolute Lymphs (auto) 1.0 Absolute Monos (auto) 0.5 Absolute Eos (auto) 0.1 Absolute Basos (auto) 0 Absolute Nucleated RBC 0 Nucleated RBC % 0 Sodium Potassium Chloride Carbon Dioxide Anion Gap BUN Creatinine Est GFR ( Amer) Est GFR (Non-Af Amer) BUN/Creatinine Ratio Glucose POC Glucose (mg/dL) Calcium Magnesium Studies: CXR 05/08 IMPRESSION: RIGHT UPPER LOBAR INFILTRATE, UNCHANGED. CT Chest 05/08 IMPRESSION: 1. There is mediastinal lymphadenopathy. 2. There is consolidation involving most of the right upper lobe with some minimal air bronchograms present and there is additional bilateral lower lobe dependent consolidation as well as bilateral lung patchy opacity in the perihilar regions, all suspicious for bilateral pneumonitis versus less likely pulmonary edema. Mass lesion in the right hilum cannot be completely excluded but limited evaluation without IV contrast. Gallbladder Sono 05/08 IMPRESSION: NO ACUTE SONOGRAPHIC PATHOLOGY OF THE VISUALIZED PORTION OF THE ABDOMEN. TTE 05/08 Conclusions There is normal left ventricular systolic function. The estimated ejection fraction is 55-60%. Global left ventricular wall motion and contractility are within normal limits. The left ventricular chamber size is decreased. The left atrium is moderately dilated. The right ventricle is mildly dilated. The right ventricular global systolic function is moderately reduced. There is mild to moderate tricuspid regurgitation. There is evidence of moderate pulmonary hypertension. There is no prior echocardiogram available to compare with at this time. CXR 05/13 1. THERE HAS BEEN PROGRESSION OF RIGHT UPPER LOBE CONSOLIDATION. 2. THERE HAS BEEN IMPROVED AERATION OF THE RIGHT LOWER LUNG. 3. THERE IS PATCHY AIRSPACE DISEASE OF THE LEFT LOWER LUNG WHICH MAY REPRESENT ATELECTASIS VERSUS EARLY CONSOLIDATION. CXR 05/17 IMPRESSION: #. Interval decrease in RIGHT pleural fluid. #. Bronchopneumonia superimposed on chronic obstructive pulmonary disease and emphysema. Impression: 72F with htn, copd, aaa repair, IJ DVT presents with legionella pneumonia Plan: Neuro - mentating well CV - htn, afib - currently in sinus - lisinopril held for low bp - tte wnl Pulm - hypoxic respiratory failure, copd - 2/2 legionella pna - now on 6LNC - dc mucomyst - c/w nebs ID - legionella pna - levaquin for 21 days - completed course of vanc/aztreonam - f/u cultures GI - diet as tolerated Renal - monitor i/o - monitor lytes Heme - IJ DVT - ac with coumadin Endo - check fs, niss Lines - piv PPx - gi/dvt DNR/DNI Stable for transfer to medical floor
[2018-05-20] MEDS: Famotidine TAB* 20 MG PO SCH (09:25)
[2018-05-20] MEDS: Nystatin SUSPENSION* 100000 UNITS/ML 5 ML UDC PO SCH ×4 (09:25→20:26)
[2018-05-20 09:36] LABS: INR 1.89 (0.77-1.02)
[2018-05-20] MEDS: Acetaminophen TAB* 325 MG PO PRN ×2 (13:46→20:27)
[2018-05-20] MEDS ORDERED: Warfarin TAB(*) 1 MG PO ONE (17:00)
[2018-05-21] MEDS: Albuterol/Ipratropium NEB.SOL* Albuterol 2.5 MG/Ipratropium 0.5 MG 3 ML INH SCH ×4 (02:16→19:55)
[2018-05-21 06:03] LABS: INR 1.75 (0.77-1.02)
[2018-05-21] MEDS: Insulin LISPRO* 1 UNITS UNIT SUBCUT SCH ×4 (07:52→21:38)
[2018-05-21] MEDS: Docusate CAP* 100 MG PO SCH ×2 (08:15→21:33)
[2018-05-21] MEDS: Levofloxacin 750 MG IVPREMIX(* 750 MG/150 ML BAG IVPB SCH (08:17)
[2018-05-21] MEDS: Nystatin SUSPENSION* 100000 UNITS/ML 5 ML UDC PO SCH ×4 (08:22→21:36)
[2018-05-21] MEDS: Famotidine TAB* 20 MG PO SCH (08:22)
--- NOTE | 2018-05-21 10:01 | PN ---
Subjective Date of Service: 05/21/18 Interval History: Ms. Briggs reports that she feels tired today after working with PT but feels that her breathing continues to improve each day. She is aware that she may need to have rehab. Objective Active Medications: Acetaminophen (Tylenol Tab*) 650 mg PO Q4H PRN Albuterol/Ipratropium (Duoneb (Albuterol 2.5 Mg/Ipratropium 0.5 Mg)) 1 neb INH [id number] AWAKE [facility] Docusate Sodium (Colace Cap*) 100 mg PO BID [facility] Famotidine (Pepcid Tab*) 20 mg PO DAILY [facility] Guaifenesin (Robitussin*) 5 ml PO Q4H PRN Levofloxacin/Dextrose (Levaquin 750 Mg Ivpremix(*)) 750 mg in 150 mls @ 100 mls /hr IVPB Q24H [facility] Insulin Human Lispro (Humalog*) 0 units SUBCUT ACHS [facility]; Protocol Nystatin (Nystatin Suspension*) 200,000 units PO QID [facility] Pharmacy Profile Note (Coumadin Per Pharmacy*) 1 note FOLLOW UP .PER PHARMACY PROTOC [facility]; Protocol Polyethylene Glycol/Electrolytes (Miralax*) 17 gm PO DAILY PRN Warfarin Sodium (Coumadin Tab(*)) 1.5 mg PO 1700 ONE Vital Signs: Temp Pulse Resp BP Pulse Ox 97.2 F 94 94 120/55 93 05/21/18 03:52 05/21/18 07:44 05/21/18 07:44 05/21/18 03:52 05/21/18 07:44 Oxygen Devices in Use Now: Nasal Cannula Appearance: Female lying in bed in NAD Eyes: No Scleral Icterus Ears/Nose/Mouth/Throat: Mucous Membranes Moist Respiratory: Symmetrical Chest Expansion and Respiratory Effort, Clear to Auscultation Cardiovascular: NL Sounds; No Murmurs; No JVD, No Edema Abdominal: NL Sounds; No Tenderness; No Distention Lymphatic: No Cervical Adenopathy Extremities: No Edema Skin: No Rash or Ulcers Neurological: Alert and Oriented x 3, NL Muscle Strength and Tone Nutrition: Taking PO's Result Diagrams: 05/20/18 05:15 05/20/18 05:15 Assess/Plan/Problems-Billing Assessment: Ms. Briggs is a 72 yr old with PMH of COPD not on home oxygen who was admitted on 05/08/18 with acute respiratory failure secondary to legionella pneumonia. - Patient Problems (1) Septic shock Comment: - Resolved, required vasopressors (2) Acute and chronic respiratory failure Comment: - Resolving, currently on 5L NC. (3) Legionella pneumonia Comment: - Continue levaquin, complete 10 day course (4) Acute renal failure (ARF) Comment: - Resolved. (5) Hypotension Comment: - BP labile - Hold metoprolol, lisinopril and spironolactone (6) PVD (peripheral vascular disease) Comment: - Warfarin resumed (7) DVT prophylaxis Comment: - Warfarin (8) DNR (do not resuscitate) Comment: Status and Disposition: Inpatient. May need rehab
[2018-05-21] MEDS: Acetaminophen TAB* 325 MG PO PRN (14:04)
[2018-05-21] MEDS ORDERED: Warfarin TAB(*) 1 MG PO ONE (17:00)
[2018-05-21] MEDS: guaiFENesin LIQ* 100 MG/5 ML UDC PO PRN (21:35)
[2018-05-22] MEDS: Acetaminophen TAB* 325 MG PO PRN ×3 (00:08→22:29)
[2018-05-22] MEDS: Albuterol/Ipratropium NEB.SOL* Albuterol 2.5 MG/Ipratropium 0.5 MG 3 ML INH SCH ×4 (01:39→20:06)
[2018-05-22 07:37] LABS: INR 1.47 (0.77-1.02)
--- NOTE | 2018-05-22 08:17 | PN ---
Subjective Date of Service: 05/22/18 Interval History: Ms. Briggs states that she is feeling better today because she was able to get a better night's sleep. She denies chest pain but is short of breath and weak with mobility. She denies nausea or abdominal pain and is tolerating oral intake well. Objective Active Medications: Acetaminophen (Tylenol Tab*) 650 mg PO Q4H PRN Albuterol/Ipratropium (Duoneb (Albuterol 2.5 Mg/Ipratropium 0.5 Mg)) 1 neb INH [id number] AWAKE [facility] Docusate Sodium (Colace Cap*) 100 mg PO BID [facility] Famotidine (Pepcid Tab*) 20 mg PO DAILY [facility] Guaifenesin (Robitussin*) 5 ml PO Q4H PRN Insulin Human Lispro (Humalog*) 0 units SUBCUT ACHS [facility]; Protocol Levofloxacin (Levaquin Tab*) 750 mg PO DAILY [facility] Nystatin (Nystatin Suspension*) 200,000 units PO QID [facility] Pharmacy Profile Note (Coumadin Per Pharmacy*) 1 note FOLLOW UP .PER PHARMACY PROTOC [facility]; Protocol Polyethylene Glycol/Electrolytes (Miralax*) 17 gm PO DAILY PRN Vital Signs: Temp Pulse Resp BP Pulse Ox 97.8 F 78 16 100/50 93 05/22/18 03:15 05/22/18 07:02 05/22/18 07:02 05/22/18 03:30 05/22/18 07:02 Oxygen Devices in Use Now: Nasal Cannula Appearance: Female lying in bed in NAD Eyes: No Scleral Icterus Ears/Nose/Mouth/Throat: Mucous Membranes Moist Neck: Trachea Midline Respiratory: - - Diminished throughout Cardiovascular: NL Sounds; No Murmurs; No JVD, No Edema Abdominal: NL Sounds; No Tenderness; No Distention Extremities: No Edema Skin: No Rash or Ulcers Neurological: Alert and Oriented x 3, NL Muscle Strength and Tone Nutrition: Taking PO's Result Diagrams: 05/20/18 05:15 05/20/18 05:15 Additional Lab and Data: . Microbiology and Other Data: . EKG Data: . Assess/Plan/Problems-Billing Assessment: Ms. Briggs is a 72 yr old with PMH of COPD not on home oxygen who was admitted on 05/08/18 with acute respiratory failure secondary to legionella pneumonia. - Patient Problems (1) Septic shock Comment: - Resolved, required vasopressors (2) Acute and chronic respiratory failure Comment: - Resolving, unable to wean down < 5L NC yet. (3) Legionella pneumonia Comment: - Continue levaquin, complete 10 day course (4) Acute renal failure (ARF) Comment: - Resolved. (5) Hypotension Comment: - BP labile - Hold metoprolol, lisinopril and spironolactone (6) Diabetes Comment: - BGs 120-200. - Hold home glimepiride, increase SSI coverage for meals (7) PVD (peripheral vascular disease) Comment: - Warfarin resumed (8) DVT prophylaxis Comment: - Warfarin (9) DNR (do not resuscitate) Comment: Status and Disposition: Inpatient. May need rehab and is hoping for [facility], continue PT and encourage mobilization.
[2018-05-22] MEDS: Famotidine TAB* 20 MG PO SCH (09:13)
[2018-05-22] MEDS: Docusate CAP* 100 MG PO SCH (09:13)
[2018-05-22] MEDS: Insulin LISPRO* 1 UNITS UNIT SUBCUT SCH ×4 (09:13→22:00)
[2018-05-22] MEDS: Levofloxacin TAB* 750 MG PO SCH (09:13)
[2018-05-22] MEDS: Nystatin SUSPENSION* 100000 UNITS/ML 5 ML UDC PO SCH ×4 (09:13→22:28)
[2018-05-22] MEDS ORDERED: Warfarin TAB(*) 2 MG PO ONE (17:00)
[2018-05-22] MEDS: guaiFENesin LIQ* 100 MG/5 ML UDC PO PRN (22:27)
[2018-05-23] MEDS: Albuterol/Ipratropium NEB.SOL* Albuterol 2.5 MG/Ipratropium 0.5 MG 3 ML INH SCH ×2 (01:58→06:48)
[2018-05-23] MEDS: Docusate CAP* 100 MG PO SCH ×3 (04:04→21:41)
[2018-05-23] MEDS ORDERED: Albuterol/Ipratropium NEB.SOL* Albuterol 2.5 MG/Ipratropium 0.5 MG 3 ML INH PRN (06:53)
--- NOTE | 2018-05-23 08:26 | PN ---
Subjective Date of Service: 05/23/18 Interval History: Ms. Briggs states that she continues to feel better each day. She is ambulating short distances and is currently on 3L NC, she continues to become winded but recovers quickly. She denies other complaint including chest pain, nausea, or abdominal pain. Objective Active Medications: Acetaminophen (Tylenol Tab*) 650 mg PO Q4H PRN Albuterol/Ipratropium (Duoneb (Albuterol 2.5 Mg/Ipratropium 0.5 Mg)) 1 neb INH Q6H PRN Docusate Sodium (Colace Cap*) 100 mg PO BID [facility] Famotidine (Pepcid Tab*) 20 mg PO DAILY [facility] Guaifenesin (Robitussin*) 5 ml PO Q4H PRN Insulin Human Lispro (Humalog*) 0 units SUBCUT ACHS [facility]; Protocol Levofloxacin (Levaquin Tab*) 750 mg PO DAILY [facility] Nystatin (Nystatin Suspension*) 200,000 units PO QID [facility] Pharmacy Profile Note (Coumadin Per Pharmacy*) 1 note FOLLOW UP .PER PHARMACY PROTOC [facility]; Protocol Polyethylene Glycol/Electrolytes (Miralax*) 17 gm PO DAILY PRN Vital Signs: Temp Pulse Resp BP Pulse Ox 98.0 F 98 18 117/54 98 05/23/18 04:03 05/23/18 06:50 05/23/18 06:50 05/23/18 04:03 05/23/18 06:50 Oxygen Devices in Use Now: Nasal Cannula Appearance: Female lying in bed in NAD Eyes: No Scleral Icterus Ears/Nose/Mouth/Throat: Mucous Membranes Moist Neck: Trachea Midline Respiratory: Symmetrical Chest Expansion and Respiratory Effort, Clear to Auscultation, - - Diminished R > L Cardiovascular: NL Sounds; No Murmurs; No JVD, No Edema Abdominal: NL Sounds; No Tenderness; No Distention Extremities: No Edema Skin: No Rash or Ulcers Neurological: Alert and Oriented x 3, NL Muscle Strength and Tone Nutrition: Taking PO's Result Diagrams: 05/23/18 08:43 05/20/18 05:15 Additional Lab and Data: . Microbiology and Other Data: . EKG Data: . Assess/Plan/Problems-Billing Assessment: Ms. Brigsg is a 72 yr old with PMH of COPD not on home oxygen who was admitted on 05/08/18 with septic shock and acute respiratory failure secondary to legionella pneumonia. - Patient Problems (1) Septic shock Comment: - Resolved, required vasopressors (2) Acute and chronic respiratory failure Comment: - Resolving, now on 3L NC (3) Legionella pneumonia Comment: - Completed 10 day course, afebrile (4) Acute renal failure (ARF) Comment: - Resolved. (5) Hypotension Comment: - BP labile - Hold metoprolol, lisinopril and spironolactone (6) Diabetes Comment: - BGs 120-200. - Hold home glimepiride, increase SSI coverage for meals (7) Anemia Comment: - Hgb drifting down during this admission, in part due to bone marrow suppression of acute illness - Iron stores low normal - Check stool occult blood (8) DVT (deep venous thrombosis) Comment: - Hx of R IJ DVT, continue warfarin (9) DVT prophylaxis Comment: - Warfarin, pharmacy adjusting (10) DNR (do not resuscitate) Comment: Status and Disposition: Inpatient. May need rehab and is hoping for [facility], continue PT and encourage mobilization.
[2018-05-23 09:00] LABS: ABS Basophils 0 10^3/ul (0-0.2); ABS Eosinophils 0.1 10^3/ul (0-0.6); ABS Monocytes 0.5 10^3/ul (0-0.8); ABS Nucleated RBC 0 10^3/ul; Eosinophil % 1.3 % (0-6); Hematocrit 27 % (35-47); Hemoglobin 8.8 g/dl (12.0-16.0); Lymphocyte % 13.2 % (25-47); Mean Corpuscular HGB Conc 33 g/dl (31-36); Mean Corpuscular Hemoglobin 31 pg (27-31); Mean Corpuscular Volume 92 fL (80-97); Mean Platelet Volume 7.2 fL (7.4-10.4); Nucleated Red Blood Cells % 0.1; Platelet Count 224 10^3/ul (150-450); Red Blood Count 2.89 10^6/ul (4.00-5.40); Red Cell Distribution Width 15 % (10.5-15); White Blood Count 7.6 10^3/ul (3.5-10.8)
[2018-05-23] MEDS: Insulin LISPRO* 1 UNITS UNIT SUBCUT SCH ×4 (09:10→21:37)
[2018-05-23 09:22] LABS: INR 1.34 (0.77-1.02)
[2018-05-23] MEDS: Nystatin SUSPENSION* 100000 UNITS/ML 5 ML UDC PO SCH ×4 (10:20→21:38)
[2018-05-23] MEDS: Acetaminophen TAB* 325 MG PO PRN ×2 (10:20→21:39)
[2018-05-23] MEDS: Famotidine TAB* 20 MG PO SCH (10:21)
[2018-05-23] MEDS: Levofloxacin TAB* 750 MG PO SCH (10:21)
[2018-05-23] MEDS ORDERED: Warfarin TAB(*) 3 MG PO ONE (17:00)
[2018-05-23] MEDS: guaiFENesin LIQ* 100 MG/5 ML UDC PO PRN (21:38)
[2018-05-24 06:27] LABS: INR 1.39 (0.77-1.02)
--- NOTE | 2018-05-24 08:03 | PN ---
Subjective Date of Service: 05/24/18 Interval History: Ms. Briggs reports feeling tired today. She was able to sleep overnight but states that it was disjointed. She denies chest pain and states that her SOB continues to improve. She denies nausea or abdominal pain and is tolerating oral intake well. Objective Active Medications: Acetaminophen (Tylenol Tab*) 650 mg PO Q4H PRN Albuterol/Ipratropium (Duoneb (Albuterol 2.5 Mg/Ipratropium 0.5 Mg)) 1 neb INH Q6H PRN Docusate Sodium (Colace Cap*) 100 mg PO BID [facility] Famotidine (Pepcid Tab*) 20 mg PO DAILY [facility] Guaifenesin (Robitussin*) 5 ml PO Q4H PRN Insulin Human Lispro (Humalog*) 0 units SUBCUT ACHS [facility]; Protocol Nystatin (Nystatin Suspension*) 200,000 units PO QID [facility] Pharmacy Profile Note (Coumadin Per Pharmacy*) 1 note FOLLOW UP .PER PHARMACY PROTOC [facility]; Protocol Polyethylene Glycol/Electrolytes (Miralax*) 17 gm PO DAILY PRN Vital Signs: Temp Pulse Resp BP Pulse Ox 97.2 F 94 16 127/54 97 05/24/18 07:17 05/24/18 07:17 05/24/18 07:17 05/24/18 07:17 05/24/18 07:17 Oxygen Devices in Use Now: Nasal Cannula Appearance: Female lying in bed in NAD Eyes: No Scleral Icterus Ears/Nose/Mouth/Throat: Mucous Membranes Moist Respiratory: Symmetrical Chest Expansion and Respiratory Effort, Clear to Auscultation Cardiovascular: NL Sounds; No Murmurs; No JVD, No Edema Abdominal: NL Sounds; No Tenderness; No Distention Lymphatic: No Cervical Adenopathy Extremities: No Edema Skin: No Rash or Ulcers Neurological: Alert and Oriented x 3, NL Muscle Strength and Tone Nutrition: Taking PO's Result Diagrams: 05/23/18 08:43 05/20/18 05:15 Additional Lab and Data: . Microbiology and Other Data: . EKG Data: . Assess/Plan/Problems-Billing Assessment: Ms. Briggs is a 72 yr old with PMH of COPD not on home oxygen who was admitted on 05/08/18 with septic shock and acute respiratory failure secondary to legionella pneumonia. - Patient Problems (1) Septic shock Comment: - Resolved, required vasopressors (2) Acute and chronic respiratory failure Comment: - Resolving, on 1L NC this morning (3) Legionella pneumonia Comment: - Completed 10 day course, afebrile - Infection control following up with patient's [facility] (4) Acute renal failure (ARF) Comment: - Resolved. (5) Hypotension Comment: - BP labile - Hold metoprolol, lisinopril and spironolactone (6) Diabetes Comment: - BGs 120-200. - Hold home glimepiride, continue high dose SSI coverage for meals (7) Anemia Comment: - Hgb drifting down during this admission, in part due to bone marrow suppression of acute illness - Iron stores low normal - Check stool occult blood (8) DVT (deep venous thrombosis) Comment: - Hx of R IJ DVT, continue warfarin (9) DVT prophylaxis Comment: - Warfarin, pharmacy adjusting (10) DNR (do not resuscitate) Comment: Status and Disposition: Inpatient. Anticipate discharge to [facility] on Saturday.
[2018-05-24] MEDS: Insulin LISPRO* 1 UNITS UNIT SUBCUT SCH ×4 (09:13→21:10)
[2018-05-24] MEDS: Acetaminophen TAB* 325 MG PO PRN ×2 (09:17→19:53)
[2018-05-24] MEDS: Docusate CAP* 100 MG PO SCH ×2 (09:17→19:52)
[2018-05-24] MEDS: Nystatin SUSPENSION* 100000 UNITS/ML 5 ML UDC PO SCH ×4 (09:17→19:52)
[2018-05-24] MEDS: Famotidine TAB* 20 MG PO SCH (09:17)
[2018-05-24] MEDS ORDERED: Warfarin TAB(*) 3 MG PO ONE (17:00)
[2018-05-25 06:20] LABS: ABS Basophils 0 10^3/ul (0-0.2); ABS Eosinophils 0.2 10^3/ul (0-0.6); ABS Monocytes 0.5 10^3/ul (0-0.8); ABS Nucleated RBC 0 10^3/ul; Eosinophil % 3.7 % (0-6); Hematocrit 26 % (35-47); Hemoglobin 8.7 g/dl (12.0-16.0); Lymphocyte % 18.3 % (25-47); Mean Corpuscular HGB Conc 33 g/dl (31-36); Mean Corpuscular Hemoglobin 30 pg (27-31); Mean Corpuscular Volume 92 fL (80-97); Mean Platelet Volume 7.1 fL (7.4-10.4); Nucleated Red Blood Cells % 0.1; Platelet Count 203 10^3/ul (150-450); Red Blood Count 2.86 10^6/ul (4.00-5.40); Red Cell Distribution Width 16 % (10.5-15); White Blood Count 5.7 10^3/ul (3.5-10.8)
--- NOTE | 2018-05-25 08:41 | PN ---
Subjective Date of Service: 05/25/18 Interval History: Ms. Briggs denies any new complaints today and feels that she is getting a bit better day by day. She denies chest pain, her shortness of breath continues to improve. She denies nausea or abdominal pain and is tolerating oral intake well. Objective Active Medications: Acetaminophen (Tylenol Tab*) 650 mg PO Q4H PRN Albuterol/Ipratropium (Duoneb (Albuterol 2.5 Mg/Ipratropium 0.5 Mg)) 1 neb INH Q6H PRN Docusate Sodium (Colace Cap*) 100 mg PO BID KACY Famotidine (Pepcid Tab*) 20 mg PO DAILY KACY Guaifenesin (Robitussin*) 5 ml PO Q4H PRN Insulin Human Lispro (Humalog*) 0 units SUBCUT ACHS [facility]; Protocol Nystatin (Nystatin Suspension*) 200,000 units PO QID [facility] Pharmacy Profile Note (Coumadin Per Pharmacy*) 1 note FOLLOW UP .PER PHARMACY PROTOC [facility]; Protocol Polyethylene Glycol/Electrolytes (Miralax*) 17 gm PO DAILY PRN Vital Signs: Temp Pulse Resp BP Pulse Ox 98.7 F 84 17 103/43 96 05/25/18 03:38 05/25/18 03:38 05/25/18 03:38 05/25/18 03:38 05/25/18 03:38 Oxygen Devices in Use Now: Nasal Cannula Appearance: Elderly female lying in bed in NAD Eyes: No Scleral Icterus Ears/Nose/Mouth/Throat: Mucous Membranes Moist Neck: Trachea Midline Respiratory: Symmetrical Chest Expansion and Respiratory Effort, Clear to Auscultation Cardiovascular: NL Sounds; No Murmurs; No JVD, No Edema Abdominal: NL Sounds; No Tenderness; No Distention Lymphatic: No Cervical Adenopathy Extremities: No Edema Skin: No Rash or Ulcers Neurological: Alert and Oriented x 3, NL Muscle Strength and Tone Nutrition: Taking PO's Result Diagrams: 05/25/18 05:45 05/20/18 05:15 Additional Lab and Data: . Microbiology and Other Data: . EKG Data: . Assess/Plan/Problems-Billing Assessment: Ms. Briggs is a 72 yr old with PMH of COPD not on home oxygen who was admitted on 05/08/18 with septic shock and acute respiratory failure secondary to legionella pneumonia. - Patient Problems (1) Septic shock Comment: - Resolved, required vasopressors (2) Acute and chronic respiratory failure Comment: - Resolving, on 1-3L NC over the past 48 hours (3) Legionella pneumonia Comment: - Completed 10 day course, afebrile - Infection control following up with patient's [facility] (4) Acute renal failure (ARF) Comment: - Resolved. (5) Hypotension Comment: - BP labile - Hold metoprolol, lisinopril and spironolactone (6) Diabetes Comment: - BGs 120-200. - Hold home glimepiride, continue high dose SSI coverage for meals (7) Anemia Comment: - Hgb drifting down during this admission. - Iron stores low normal. Stool occult blood normal. - Suspect related to acute illness, hydration. - Recommend follow up oupatient. (8) DVT (deep venous thrombosis) Comment: - Hx of R IJ DVT, continue warfarin (9) DVT prophylaxis Comment: - Warfarin, pharmacy adjusting. INR labile during acute illness. (10) DNR (do not resuscitate) Comment: Status and Disposition: Inpatient. Anticipate discharge to [facility] if bed available on Saturday.
[2018-05-25] MEDS: Docusate CAP* 100 MG PO SCH ×2 (08:51→21:24)
[2018-05-25] MEDS: Famotidine TAB* 20 MG PO SCH (08:51)
[2018-05-25] MEDS: Insulin LISPRO* 1 UNITS UNIT SUBCUT SCH ×4 (09:00→20:26)
[2018-05-25] MEDS: Nystatin SUSPENSION* 100000 UNITS/ML 5 ML UDC PO SCH ×4 (09:00→20:26)
[2018-05-25 15:19] LABS: INR 1.4 (0.77-1.02)
[2018-05-25] MEDS ORDERED: Warfarin TAB(*) 4 MG PO ONE (17:00)
[2018-05-25] MEDS: Acetaminophen TAB* 325 MG PO PRN (20:32)
[2018-05-26 07:20] LABS: INR 1.46 (0.77-1.02)
[2018-05-26] MEDS: Nystatin SUSPENSION* 100000 UNITS/ML 5 ML UDC PO SCH ×2 (08:33→12:55)
[2018-05-26] MEDS: Famotidine TAB* 20 MG PO SCH (08:34)
[2018-05-26] MEDS: Insulin LISPRO* 1 UNITS UNIT SUBCUT SCH ×2 (08:34→12:55)
[2018-05-26] MEDS: Docusate CAP* 100 MG PO SCH (08:34)
[2018-05-26] MEDS: Acetaminophen TAB* 325 MG PO PRN (08:34)
--- NOTE | 2018-05-26 12:24 | DS ---
CC: Dr. Emilia Kowalski * DATE OF ADMISSION: 05/08/2018. DATE OF DISCHARGE: 05/26/2018. PRIMARY CARE PHYSICIAN: Dr. Emilia Kowalski. ATTENDING PHYSICIAN: Dr. Sujey Rodarte. MY ATTENDING PHYSICIAN FOR TODAY: Dr. Susi Lobo * (dictated by Oscar Stern NP). HOSPITAL COURSE: Please refer to admitting history and physical from Dr. Erazo regarding this patient's very complicated admission. In short, Ms. Briggs presented to the emergency department with complaint of cough, malaise and some intermittent shortness of breath. Cough was productive in nature with greenish- colored sputum. She did not report any sick contacts at that time. The patient had imaging on her admission because she needed BiPAP. She does have a history of COPD; however, she had not a history of respiratory failure in the past. She did not have any lactic acidosis, but she was still requiring BiPAP for maintaining her O2 saturation. She was also hypotensive and did not respond to IV fluids and needed pressors. At that point, the patient was sent to the ICU. Blood gas at admission was 7.33, pH 7.33, CO2 70, bicarb 23. CT of the chest revealed a multilobar pneumonia and she was admitted to the ICU. She did have her course complicated by her diagnosis of legionella pneumonia and septic shock. Again, the patient was placed on pressors. She received respiratory support between the 14 of May to the 20 of May. She eventually was weaned down to 6 liters high flow nasal cannula and was weaned off of pressors. The patient completed courses of Vancomycin, Aztreonam, and Levaquin. Also, the Health Department was contacted regarding her legionella infection. The patient was treated aggressively with pulmonary toilet, she was seen by Physical Therapy and eventually stabilized. The patient has been cleared for discharge for subacute rehab at [facility]. She will be transferred this afternoon. DISCHARGE DIAGNOSES: 1. Septic shock secondary to legionella pneumonia. 2. Acute on chronic respiratory failure requiring oxygen at 1 to 3 liters. 3. Acute renal failure, now resolved. 4. Hypotension secondary to septic shock, now resolved. 5. Diabetes with stable blood glucose. 6. Anemia likely secondary to acute hospitalization and infection, now stable. 7. Acute on chronic anemia secondary to iron deficiency and acute illness. DISCHARGE MEDICATIONS: 1. Coumadin 5 mg p.o. daily. 2. Oxycodone 5 mg q.6 hours as needed. 3. Glimepiride 1 mg p.o. daily. 4. Atorvastatin 80 mg p.o. daily. 5. Spironolactone 25 mg p.o. daily. 6. Lisinopril 10 mg p.o. daily. 7. Guaifenesin 5 ml p.o. q.4 hours as needed. 8. Nystatin suspension 200,000 units p.o. q.i.d. 9. Lispro sliding scale. 10. Famotidine 20 mg p.o. daily. 11. Docusate 100 mg p.o. b.i.d. 12. DuoNeb one neb q.6 hours as needed. 13. Tylenol 650 mg q.4 hours as needed. REVIEW OF SYSTEMS: The patient did not complain of any fever, fatigue, or chills. She does have a mild cough. No shortness of breath. No chest pain. No nausea, no vomiting. No arthralgias or myalgias. Some general weakness and fatigue, but otherwise no acute complaints. PHYSICAL EXAMINATION: General: Today, reveals a well-appearing, alert female of her stated age. Vital Signs: Blood pressure 103/47, heart rate 96, respiratory rate 17, O2 saturation 97 percent on 2 liters nasal cannula with a temperature of 97.8. HEENT: Patient is atraumatic, normocephalic. PERRLA with nonicteric sclerae. Oral mucosa is moist. Dentition is poor. Tongue is midline. Neck: Supple, nontender, no JVD noted. No carotid bruit auscultated. Cardiovascular: S1, S2 present. No murmurs, gallops, or rubs noted. Lungs: Clear at the apices. Mildly diminished at the bases, the right more than the left. No appreciable wheezing, rhonchi, or rales noted. Abdomen: Soft, nontender, nondistended. Positive bowel sounds all four quadrants. No organomegaly noted. : Deferred. Musculoskeletal: There is no clubbing, no cyanosis, no edema. She has +2 distal pulses palpable and a steady gait. Neurologic: Grossly intact with no focal deficits. Psychiatric: Cooperative and appropriate. LABORATORY DATA: WBC 5.7, RBC 2.86, hemoglobin 8.7, hematocrit 26; sodium 138, potassium 4.1, chloride 106, CO2 29, BUN 17, creatinine 0.97, GFR 56.3, glucose 109, calcium 8.1, magnesium 2.0, iron is 42, total iron binding capacity 224, % saturation 19, unsaturated iron binding is less than 209, transferrin 160, ferritin 422.8. IMAGIN. Chest CT dated 05/08/2018 showed mediastinal lymphadenopathy, consolidation involving most of the right upper lobe with some minimal air bronchograms present. There is additional bilateral lower lobe dependent consolidation as well as bilateral lung patchy opacity in the perihilar regions, all suspicious for bilateral pneumonitis versus less likely pulmonary edema. Mass lesion in the right hilum cannot be completely excluded, but limited evaluation without IV contrast. 2. Repeat chest x-ray: She had five repeat chest x-rays; however, most recent dated 05/17/2018 showed interval decrease in the right pleural fluid and bronchopneumonia superimposed on chronic obstructive pulmonary disease and emphysema. DISPOSITION: The patient will be discharged via ambulance transport to [facility] for continued subacute rehab. DIET: Diabetic, heart-healthy, as tolerated. DISCHARGE MEDICATIONS: As above. FOLLOW-UP: The patient should follow-up with Dr. Kowalski, her primary care provider after discharge from [place]. It is my understanding that Dr. Kowalski will be following her while she is undergoing acute rehab. ACTIVITY: Out of bed and physical therapy as tolerated. TIME SPENT: Greater than 35 minutes were spent discharging the patient, interfacing with the patient, case management and other providers to ensure proper discharge plan of care. OSCAR STERN, KIRAN [id number]/[facility] #: [id number] MARY LOU
[2018-05-26 13:09] VITALS: BP 101/54
[2018-05-26] MEDS ORDERED: Warfarin TAB(*) 4 MG PO ONE (17:00)
== END 2018-05-26 13:25 | disposition swing bed (61) | DRG 871 ==
LOC: ED 00:08 → ICU 01:50 → MED 05-20 14:09
PROVIDERS: ADMIT Internal Medicine; ATTEND Internal Medicine
PROC: 30233L1 Transfusion of Nonautologous Fresh Plasma into Peripheral Vein, Percutaneous Approach (ICD-10-PCS; 2018-05-08)
PROC: 30233K1 Transfusion of Nonautologous Frozen Plasma into Peripheral Vein, Percutaneous Approach (ICD-10-PCS; 2018-05-08)
PROC: 3E033XZ Introduction of Vasopressor into Peripheral Vein, Percutaneous Approach (ICD-10-PCS; principal; 2018-05-09)
PROC: 5A09357 Assistance with Respiratory Ventilation, Less than 24 Consecutive Hours, Continuous Positive Airway Pressure (ICD-10-PCS; 2018-05-18)
DX: A41.9 Sepsis, unspecified organism (principal); J96.21 Acute and chronic respiratory failure with hypoxia; R65.21 Severe sepsis with septic shock; J16.8 Pneumonia due to other specified infectious organisms; N17.9 Acute kidney failure, unspecified; J44.0 Chronic obstructive pulmonary disease with (acute) lower respiratory infection; E87.2 Acidosis; I10 Essential (primary) hypertension; F17.210 Nicotine dependence, cigarettes, uncomplicated; R79.1 Abnormal coagulation profile; I73.9 Peripheral vascular disease, unspecified; G89.29 Other chronic pain; D64.9 Anemia, unspecified; D63.8 Anemia in other chronic diseases classified elsewhere; E11.51 Type 2 diabetes mellitus with diabetic peripheral angiopathy without gangrene; D50.9 Iron deficiency anemia, unspecified; Z66 Do not resuscitate; Z88.0 Allergy status to penicillin; Z72.89 Other problems related to lifestyle; Z83.3 Family history of diabetes mellitus; Z82.49 Family history of ischemic heart disease and other diseases of the circulatory system; Z86.73 Personal history of transient ischemic attack (TIA), and cerebral infarction without residual deficits; Z79.01 Long term (current) use of anticoagulants; Z79.4 Long term (current) use of insulin
CPT/HCPCS: 36415; 36600; 71045; 71250; 76705; 80048; 80053; 80202; 81003; 81015; 82272; 82533; 82728; 82803; 83036; 83540; 83550; 83605; 83735; 83880; 84443; 84484; 85025; 85027; 85060; 85610; 85730; 86738; 86850; 86900; 86901; 86927; 87040; 87070; 87086; 87205; 87641; 87899; 93005; 93306; 94640; 94660; 94667; 94668; 99285; 99406; A9270-GY; G8978-GP-CK; G8979-GP-CI; J0153; J0456; J0696; J1720; J1815; J1956; J2270; J2543; J2920; J2930; J3370; J3430; J3475; J3480; J3490; J7060; P9017